=== PATIENT | male | born 1955 | race Caucasian/White ===

== ENCOUNTER 2022-07-11 10:38 | Inpatient (IN) | payer BC, SELFPAY ==
--- NOTE | ~2022-07-11 | CT_ITS ---
EXAMINATION: CT ABDOMEN AND PELVIS WITH CONTRAST CLINICAL INFORMATION: Abdominal discomfort. Nausea vomiting and diarrhea. Elevated lipase. COMPARISON: None available. TECHNIQUE: Multidetector volumetric images were obtained from the superior aspect of the liver through the pubic symphysis following administration 85 mL of Omnipaque 350 intravenous contrast. Sagittal and coronal reformatted images were obtained on the technologist's workstation. Oral contrast: Yes This CT examination was performed using dose optimization techniques as appropriate, variously including the following: *Automated exposure control *Adjustment of mA and/or kV according to patient size (this includes techniques or standardized protocols for targeted exams where dose is matched to indication/reason for exam; i.e. extremities or head) *Use of iterative reconstruction technique DLP: 642 mGy-cm FINDINGS: LUNG BASES: The visualized lung bases are unremarkable. LIVER, GALLBLADDER, AND BILIARY TREE: The liver is normal in size, shape, and attenuation. No focal hepatic lesion or biliary ductal dilatation is present. The gallbladder is unremarkable with no evidence of radiopaque gallstones, gallbladder wall thickening, or obvious pericholecystic inflammatory changes. PANCREAS: Unremarkable. SPLEEN: Unremarkable. ADRENAL GLANDS: Unremarkable. KIDNEYS AND URETERS: The kidneys are normal in size, shape, and attenuation. No hydronephrosis, hydroureter, or calculi seen. No perinephric stranding. Small left renal cyst. No imaging follow-up recommended. BLADDER: Unremarkable. GASTROINTESTINAL TRACT: Diverticulosis of the colon. Wall thickening of the sigmoid colon questionable for mild diverticulitis of the sigmoid colon. No evidence of obstruction, perforation or abscess. Small and large bowel is otherwise normal. The appendix is normal. ABDOMINAL WALL: No significant hernia is appreciated. LYMPH NODES: Normal. VASCULAR: Unremarkable. PELVIC VISCERA: Unremarkable. OSSEOUS STRUCTURES: Degenerative changes of the spine and hip joints CT/CT abdomen pelvis w IV con IMPRESSION: Normal pancreas. Diverticulosis of the colon. Wall thickening of the sigmoid colon questionable for mild sigmoid diverticulitis. Fleischner guidelines were followed.
--- NOTE | ~2022-07-11 | XR_ITS ---
EXAMINATION: XR CHEST CLINICAL INFORMATION: Rapid A. fib COMPARISON: None available. TECHNIQUE: Frontal view of the chest was obtained. FINDINGS: The cardiac and mediastinal contours are normal. There is minimal subsegmental atelectasis at the left lung base. The lungs are otherwise clear. No pleural effusion or pneumothorax. There are degenerative changes of the spine. XR/XR chest 1V IMPRESSION: No evidence for acute disease in the chest.
--- NOTE | 2022-07-11 07:21 | ECG_ITS ---
Test Reason : RECHECK Blood Pressure : / mmHG Vent. Rate : 061 BPM Atrial Rate : 061 BPM P-R Int : 184 ms QRS Dur : 152 ms QT Int : 444 ms P-R-T Axes : 031 -61 012 degrees QTc Int : 446 ms Sinus rhythm with occasional Premature ventricular complexes Right bundle branch block Left anterior fascicular block Bifascicular block Abnormal ECG When compared with ECG of 11-JUL-2022 19:05, Sinus rhythm has replaced atrial flutter Vent. rate has decreased BY 91 BPM Nonspecific T wave abnormality no longer evident in Anterior leads Referred By: Enio Villalobos Electronically Signed By:Jake Brown
[2022-07-11 11:15] VITALS: BP 143/83; PULSE 63; RESP 18; TEMP 36.9; O2SAT 96; BMI 31.3
--- NOTE | 2022-07-11 11:16 | ED.NAVMDI ---
HPI - Nausea/Vomiting/Diarrhea General Chief complaint: Nausea/Vomiting/Diarrhea <RENATO Walton Last Filed: 07/11/22 11:20> Stated complaint: dehydration <RENATO Walton Last Filed: 07/11/22 11:20> Time Seen by Provider: 07/11/22 11:16 <RENATO Walton Last Filed: 07/11/22 11:20> Source: patient <RENATO Negrete Last Filed: 07/11/22 20:20> Mode of arrival: ambulatory <RENATO Negrete Last Filed: 07/11/22 20:20> Limitations: no limitations <RENATO Negrete Last Filed: 07/11/22 20:20> History of Present Illness HPI Narrative: This is a 66-year-old male history of COPD, A.fib, Sarcoidosis presenting to the emergency department with fatigue, malaise, nausea, vomiting, diarrhea, chest pressure x3 days progressively worsening. Patient tells me it chest pressure is substernal in nature, feels like a burning GERD like sensation at times he feels it in his back. [place] pain. Pain is worse with exertion better at rest and at times accompanied with shortness of breath. Reports poor p.o. intake and everything he eats he wither vomits (bile) or has an episode of diarrhea. Reports generalized weakness and brown flecks in vomit. Patient denies alcohol use or history of diabetes or elevated blood sugars. Denies fevers, chills,, nausea, vomiting, headache, vision changes, dizziness, sore throat, cough, blood in stool or vomit. <RENATO Negrete Last Filed: 07/11/22 20:20> Related Data Allergies/Adverse reactions: Allergies Allergy/AdvReac Type Severity Reaction Status Date / Time No Known Allergies Allergy Verified 07/11/22 11:19 <RENATO Walton Last Filed: 07/11/22 11:20> Review of Systems Review of Systems: Constitutional : No Weight loss, No Fever, + Chills, No Fatigue, + Malaise ENT/Mouth : No sore throat, + sputum production Eyes: No Eye Pain, No Swelling, No Redness Cardiovascular : No Chest Pain, No SOB, No Dyspnea on Exertion, No Orthopnea, No Edema, No Palpitations Respiratory : No Cough, No Sputum, No Wheezing Gastrointestinal : + Nausea, + Vomiting, + Diarrhea, No Constipation, No abdominal Pain, No Hematochezia, No Melena Genitourinary : No Dysuria, No Urinary Frequency, No Hematuria, Musculoskeletal : No joint pain, No Myalgias, No Joint Swelling Skin : No Skin Lesions, No rash Neuro : No Weakness, No Numbness, No Dizziness, No Headache Psych : No Anxiety/Panic, No Depression All other systems reviewed and are negative <RENATO Negrete - Last Filed: 07/11/22 20:20> Yes all other systems are reviewed and are negative <RENATO Negrete - Last Filed: 07/11/22 20:20> Constitutional: Constitutional: Reports as per HPI <RENATO Negrete - Last Filed: 07/11/22 20:20> [facility] Past Medical History Attestation statement: The following information was validated with the patient. <RENATO Negrete - Last Filed: 07/11/22 20:20> Source: old records reviewed and nursing notes reviewed <RENATO Negrete - Last Filed: 07/11/22 20:20> Social History Social History: Social History Alcohol intake: never Smoked in Last 30 Days: No Use of substances other than those prescribed or required for medical reasons: Yes Substance Use Type: Marijuana Advance Directives: No Advance Directives Information Provided: No <RENATO Walton - Last Filed: 07/11/22 11:20> Physical Exam Vital Signs: Vital Signs: Last Vital Signs Temp 99.8 F 07/11/22 19:20 Pulse 134 H 07/11/22 20:00 Resp 20 07/11/22 20:00 BP 139/94 H 07/11/22 20:00 Pulse Ox 96 07/11/22 11:15 O2 Del Method Room Air 07/11/22 11:15 BMI result Body Mass Index 31.3 <RENATO Walton - Last Filed: 07/11/22 11:20> Vital Signs: Last Vital Signs Temp 99.8 F 07/11/22 19:20 Pulse 134 H 07/11/22 20:00 Resp 20 07/11/22 20:00 BP 139/94 H 07/11/22 20:00 Pulse Ox 96 07/11/22 11:15 O2 Del Method Room Air 07/11/22 11:15 BMI result Body Mass Index 31.3 vss <RENATO Negrete - Last Filed: 07/11/22 20:20> Appearance: Alert.? Oriented X3.? No acute distress.? Head: Normocephalic, atraumatic, no step-offs or deformities Eyes: Pupils equal, round and reactive to light.? CVS: Normal heart rate and rhythm.? Pulses normal.? Respiratory: No respiratory distress.? Breath sounds normal.? Abdomen: Soft and diffuse tenderness normal BS throughout .? Skin: Skin warm and dry.? Normal skin color.? Normal skin turgor.? Extremities: No lower extremity edema.? No calf ttp. 5/5 strength to bilateral upper and lower extremities Neuro: Oriented X 3.? No motor deficit.? No sensory deficit. CN 2-12 intact <RENATO Negrete - Last Filed: 07/11/22 20:20> Course Course Course Narrative: RME: 66yo M w/PMHx COPD, A.fib, Sarcoidosis, c/o nausea, vomiting, & loose diarrhea x3 days s/p eating [place] food. Reports episode of bloody tinged/specked emesis this AM. Hasn't been able to tolerate PO. Denies abdominal pain, dysuria Labs, UA, COVID, IVF, Zofran ordered. (Troponin requested by ) Full HPI, ROS and PE to be performed by primary ED provider. <RENATO Walton - Last Filed: 07/11/22 11:20> Reevaluation(s) Reevaluation #1: CBC with slight leukocytosis 15.1 likely reactive secondary to nausea and vomiting. Chemistry with elevated BUN 27 likely secondary to poor p.o. intake/dehydration, will hydrate with IV fluids. No acute electrolyte abnormalities requiring intervention. Troponin 13.4, EKG nonischemic unlikely ACS. Lipase is noted to be elevated 113, will hydrate with IV fluids. <RENATO Negrete - Last Filed: 07/11/22 20:20> Time: 16:50 <RENATO Negrete - Last Filed: 07/11/22 20:20> Reevaluation #2: Went to evaluate patient and he tells me that he is having some boring chest pain at this time he was given Toradol which did not seem to help much. Troponin is meeting delta criteria however EKG nonischemic concerns for anginal equivalent chest pain versus demand ischemia. <RENATO Negrete - Last Filed: 07/11/22 20:20> Time: 18:14 <RENATO Negrete - Last Filed: 07/11/22 20:20> Reevaluation #3: Patient now in AFib with RVR gave 10 mg of IV Cardizem without relief, will give another 20 mg of IV Cardizem. Patient likely in AFib with RVR secondary to dehydration, and is likely contributing to his increased troponins, increased troponin was likely secondary to demand ischemia. Patient to be admitted to the hospital <RENATO Negrete - Last Filed: 07/11/22 20:20> Time: 19:37 <RENATO Negrete - Last Filed: 07/11/22 20:20> Additional Reevaluation(s): CT of the abdomen and pelvis showing acute diverticulitis, given Zosyn. Patient to be admitted to the hospital. At time of hospital admission still in AFib with a rate of 140, on Cardizem drip per hospitalist. <RENATO Negrete - Last Filed: 07/11/22 20:20> Medications Administered Discontinued Medications Generic Name Dose Route Start Last Admin Trade Name Freq PRN Reason Stop Dose Admin Diltiazem HCl 10 mg 07/11/22 19:11 07/11/22 19:21 Diltiazem Hcl 50 Mg/10 Ml Vial IVPUSH 07/11/22 19:12 10 mg STAT STA Administration Diltiazem HCl 20 mg 07/11/22 19:34 07/11/22 19:43 Diltiazem Hcl 50 Mg/10 Ml Vial IVPUSH 07/11/22 19:35 20 mg STAT STA Administration Sodium Chloride 1,000 mls @ 999 mls/hr 07/11/22 11:30 07/11/22 18:49 Ns IV 07/11/22 12:30 Infused .Q1H1M EARL Infusion Sodium Chloride 1,000 mls @ 999 mls/hr 07/11/22 18:15 07/11/22 18:49 Ns IV 07/11/22 19:15 999 mls/hr .Q1H1M EARL Administration Piperacillin Sod/Tazobactam 50 mls @ 100 mls/hr 07/11/22 19:12 07/11/22 19:47 Sod 3.375 gm/ Sodium Chloride IV 07/11/22 19:41 100 mls/hr ONCE ONE Administration Iohexol 100 ml 07/11/22 17:51 07/11/22 17:51 Iohexol 350 Mg/Ml 100 Ml Infus..Btl IV 07/11/22 17:52 85 ml ONCE ONE Administration Ketorolac Tromethamine 30 mg 07/11/22 17:05 07/11/22 17:11 Ketorolac Tromethamine 15 Mg/Ml Vial IVPUSH 07/11/22 17:06 30 mg ONCE ONE Administration Ondansetron HCl 4 mg 07/11/22 11:19 07/11/22 17:02 Ondansetron Hcl 4 Mg/2 Ml Vial IVPUSH 07/11/22 11:20 4 mg ONCE ONE Administration <RENATO Walton - Last Filed: 07/11/22 11:20> Medications Administered Discontinued Medications Generic Name Dose Route Start Last Admin Trade Name Freq PRN Reason Stop Dose Admin Diltiazem HCl 10 mg 07/11/22 19:11 07/11/22 19:21 Diltiazem Hcl 50 Mg/10 Ml Vial IVPUSH 07/11/22 19:12 10 mg STAT STA Administration Diltiazem HCl 20 mg 07/11/22 19:34 07/11/22 19:43 Diltiazem Hcl 50 Mg/10 Ml Vial IVPUSH 07/11/22 19:35 20 mg STAT STA Administration Sodium Chloride 1,000 mls @ 999 mls/hr 07/11/22 11:30 07/11/22 18:49 Ns IV 07/11/22 12:30 Infused .Q1H1M EARL Infusion Sodium Chloride 1,000 mls @ 999 mls/hr 07/11/22 18:15 07/11/22 18:49 Ns IV 07/11/22 19:15 999 mls/hr .Q1H1M EARL Administration Piperacillin Sod/Tazobactam 50 mls @ 100 mls/hr 07/11/22 19:12 07/11/22 19:47 Sod 3.375 gm/ Sodium Chloride IV 07/11/22 19:41 100 mls/hr ONCE ONE Administration Iohexol 100 ml 07/11/22 17:51 07/11/22 17:51 Iohexol 350 Mg/Ml 100 Ml Infus..Btl IV 07/11/22 17:52 85 ml ONCE ONE Administration Ketorolac Tromethamine 30 mg 07/11/22 17:05 07/11/22 17:11 Ketorolac Tromethamine 15 Mg/Ml Vial IVPUSH 07/11/22 17:06 30 mg ONCE ONE Administration Ondansetron HCl 4 mg 07/11/22 11:19 07/11/22 17:02 Ondansetron Hcl 4 Mg/2 Ml Vial IVPUSH 07/11/22 11:20 4 mg ONCE ONE Administration <RENATO Negrete - Last Filed: 07/11/22 20:20> Medical Decision Making Medical Decision Making [facility] Narrative: [id number] This is a 66-year-old male presenting for evaluation of nausea, vomiting, diarrhea, chest pressure x3 days worsening. Physical exam w/ diffuse abd discomfort w/ present bowel sounds Concern for possible electrolyte abnormalities versus dehydration. Will rule out intra-abdominal etiologies such as obstruction although unlikely. I do not suspect acute abdomen, appendicitis, cholecystitis, diverticulitis. Other differentials include viral illness. I do not suspect dissection, PE, mi. Concerns for possible unstable angina. Plan labs, imaging, urine. Will give fluids, Zofran. <RENATO Negrete Last Filed: 07/11/22 20:20> Differential Diagnosis Differential Diagnoses: The differential diagnosis associated with the presentation includes <RENATO Negrete Last Filed: 07/11/22 20:20> Concern for possible electrolyte abnormalities versus dehydration. Will rule out intra-abdominal etiologies such as obstruction although unlikely. I do not suspect acute abdomen, appendicitis, cholecystitis, diverticulitis. Other differentials include viral illness. I do not suspect dissection, PE, mi. Concerns for possible unstable angina. <RENATO Negrete - Last Filed: 07/11/22 20:20> Admission/Observation Consideration of admission/observation: Escalation of care including admission/observation considered <RENATO Negrete - Last Filed: 07/11/22 20:20> Unlikely <RENATO Negrete - Last Filed: 07/11/22 20:20> Consult Healthcare Provider Management of the patient was discussed with: [employer] <RENATO Negrete - Last Filed: 07/11/22 20:20> Lab Data MDM Lab Attestation statement: I reviewed the patient's lab results. <RENATO Negrete - Last Filed: 07/11/22 20:20> Result Diagrams: 07/11/22 11:48 07/11/22 11:48 <RENATO Walotn - Last Filed: 07/11/22 11:20> Labs: Lab Results 07/11/22 07/11/22 07/11/22 Range/Units 11:48 11:48 11:48 WBC 15.1 H (4.8-10.8) X10*3/uL RBC 4.88 (4.60-5.80) X10*6/uL Hgb 15.2 (14.0-18.0) g/dl Hct 44.0 (42.0-52.0) % MCV 90.2 (80.0-98.0) fL MCH 31.1 (27.0-33.0) pg MCHC 34.5 (31.0-36.0) g/dl RDW 13.1 (11.0-16.0) % Plt Count 290 (160-400) X10*3/uL MPV 9.8 (9.4-12.4) fL Immature Gran % (Auto) 0.5 H (0.0-0.4) % Neut % (Auto) 77.6 H (45-73) % Lymph % (Auto) 12.9 L (20-40) % [place] % (Auto) 8.8 (2-11) % Eos % (Auto) 0.1 (0-4) % Baso % (Auto) 0.1 (0-2) % Lymph # (Auto) 1.9 (1.2-4.9) X10*3/uL [place] # (Auto) 1.3 H (0.1-1.2) X10*3/uL Eos # (Auto) 0.0 (0.0-0.4) X10*3/uL Baso # (Auto) 0.0 (0.0-0.2) X10*3/uL Abs Immat Gran (auto) 0.07 H (0.00-0.03) X10*3/uL Absolute Neuts (auto) 11.7 H (2.0-8.3) x10*3/uL Absolute Nucleated RBC 0.000 (0.0-0.012) X10*3/uL Nucleated RBC % (auto) 0.0 (0.0-0.2) /100WBC Sodium 141 (135-145) mmol/L Potassium 4.1 (3.3-5.1) mmol/L Chloride 106 (96-108) mmol/L Carbon Dioxide 25 (22-29) mmol/L Anion Gap 14 (12-20) BUN 27 H (9-16) mg/dL Creatinine 1.24 (0.5-1.4) mg/dL Estim Creat Clear Calc 70.9 Estimated GFR 59 Random Glucose 109 (60-115) mg/dL Lactic Acid (0.5-2.0) mmol/L Calcium 9.6 (8.4-10.2) mg/dL Magnesium 2.0 (1.6-2.6) mg/dL Total Bilirubin 1.0 (0.0-1.0) mg/dL Direct Bilirubin 0.3 (0.0-0.5) mg/dL AST 26 (5-37) U/L ALT 27 (0-40) U/L Alkaline Phosphatase 66 (39-117) U/L Troponin I High Sens (<3.5-35.0) ng/L B-Natriuretic Peptide (<100) pg/mL Total Protein 7.0 (6.5-8.0) g/dL Albumin 4.4 (3.5-5.0) g/dL Triglycerides 75 mg/dL Lipase 113 H (8-78) U/L Urine Color Urine Appearance Urine pH (5.0-9.0) Ur Specific [place] (1.005-1.025) Urine Protein (Neg-Trace) mg/dL Urine Glucose (UA) (Negative) mg/dL Urine Ketones (Negative) mg/dL Urine Blood (Negative) Urine Nitrite (Negative) Ur Leukocyte Esterase (Negative) Urine RBC (0-2) /HPF Urine WBC (0-5) /HPF Ur Squamous Epith Cells (0-2) /HPF Urine Bacteria (None Seen) Hyaline Casts (0-2) /LPF COVID-19 (COMPA) Negative (Negative) COVID-19 Clin Com See Note 07/11/22 07/11/22 07/11/22 Range/Units 11:48 17:01 19:00 WBC (4.8-10.8) X10*3/uL RBC (4.60-5.80) X10*6/uL Hgb (14.0-18.0) g/dl Hct (42.0-52.0) % MCV (80.0-98.0) fL MCH (27.0-33.0) pg MCHC (31.0-36.0) g/dl RDW (11.0-16.0) % Plt Count (160-400) X10*3/uL MPV (9.4-12.4) fL Immature Gran % (Auto) (0.0-0.4) % Neut % (Auto) (45-73) % Lymph % (Auto) (20-40) % [place] % (Auto) (2-11) % Eos % (Auto) (0-4) % Baso % (Auto) (0-2) % Lymph # (Auto) (1.2-4.9) X10*3/uL [place] # (Auto) (0.1-1.2) X10*3/uL Eos # (Auto) (0.0-0.4) X10*3/uL Baso # (Auto) (0.0-0.2) X10*3/uL Abs Immat Gran (auto) (0.00-0.03) X10*3/uL Absolute Neuts (auto) (2.0-8.3) x10*3/uL Absolute Nucleated RBC (0.0-0.012) X10*3/uL Nucleated RBC % (auto) (0.0-0.2) /100WBC Sodium (135-145) mmol/L Potassium (3.3-5.1) mmol/L Chloride (96-108) mmol/L Carbon Dioxide (22-29) mmol/L Anion Gap (12-20) BUN (9-16) mg/dL Creatinine (0.5-1.4) mg/dL Estim Creat Clear Calc Estimated GFR Random Glucose (60-115) mg/dL Lactic Acid (0.5-2.0) mmol/L Calcium (8.4-10.2) mg/dL Magnesium (1.6-2.6) mg/dL Total Bilirubin (0.0-1.0) mg/dL Direct Bilirubin (0.0-0.5) mg/dL AST (5-37) U/L ALT (0-40) U/L Alkaline Phosphatase (39-117) U/L Troponin I High Sens 13.4 21.2 D (<3.5-35.0) ng/L B-Natriuretic Peptide (<100) pg/mL Total Protein (6.5-8.0) g/dL Albumin (3.5-5.0) g/dL Triglycerides mg/dL Lipase (8-78) U/L Urine Color Yellow Urine Appearance Clear Urine pH 6.5 (5.0-9.0) Ur Specific [place] >= 1.030 H (1.005-1.025) Urine Protein 300 (3+) H (Neg-Trace) mg/dL Urine Glucose (UA) Negative (Negative) mg/dL Urine Ketones 40 (Negative) mg/dL Urine Blood Trace H (Negative) Urine Nitrite Negative (Negative) Ur Leukocyte Esterase Negative (Negative) Urine RBC 0-2 (0-2) /HPF Urine WBC 0-5 (0-5) /HPF Ur Squamous Epith Cells 3-5 (0-2) /HPF Urine Bacteria None Seen (None Seen) Hyaline Casts 0-2 (0-2) /LPF COVID-19 (COMPA) (Negative) COVID-19 Clin Com 07/11/22 07/11/22 Range/Units 19:46 19:46 WBC (4.8-10.8) X10*3/uL RBC (4.60-5.80) X10*6/uL Hgb (14.0-18.0) g/dl Hct (42.0-52.0) % MCV (80.0-98.0) fL MCH (27.0-33.0) pg MCHC (31.0-36.0) g/dl RDW (11.0-16.0) % Plt Count (160-400) X10*3/uL MPV (9.4-12.4) fL Immature Gran % (Auto) (0.0-0.4) % Neut % (Auto) (45-73) % Lymph % (Auto) (20-40) % [place] % (Auto) (2-11) % Eos % (Auto) (0-4) % Baso % (Auto) (0-2) % Lymph # (Auto) (1.2-4.9) X10*3/uL [place] # (Auto) (0.1-1.2) X10*3/uL Eos # (Auto) (0.0-0.4) X10*3/uL Baso # (Auto) (0.0-0.2) X10*3/uL Abs Immat Gran (auto) (0.00-0.03) X10*3/uL Absolute Neuts (auto) (2.0-8.3) x10*3/uL Absolute Nucleated RBC (0.0-0.012) X10*3/uL Nucleated RBC % (auto) (0.0-0.2) /100WBC Sodium (135-145) mmol/L Potassium (3.3-5.1) mmol/L Chloride (96-108) mmol/L Carbon Dioxide (22-29) mmol/L Anion Gap (12-20) BUN (9-16) mg/dL Creatinine (0.5-1.4) mg/dL Estim Creat Clear Calc Estimated GFR Random Glucose (60-115) mg/dL Lactic Acid 1.3 (0.5-2.0) mmol/L Calcium (8.4-10.2) mg/dL Magnesium (1.6-2.6) mg/dL Total Bilirubin (0.0-1.0) mg/dL Direct Bilirubin (0.0-0.5) mg/dL AST (5-37) U/L ALT (0-40) U/L Alkaline Phosphatase (39-117) U/L Troponin I High Sens (<3.5-35.0) ng/L B-Natriuretic Peptide 369 H (<100) pg/mL Total Protein (6.5-8.0) g/dL Albumin (3.5-5.0) g/dL Triglycerides mg/dL Lipase (8-78) U/L Urine Color Urine Appearance Urine pH (5.0-9.0) Ur Specific [place] (1.005-1.025) Urine Protein (Neg-Trace) mg/dL Urine Glucose (UA) (Negative) mg/dL Urine Ketones (Negative) mg/dL Urine Blood (Negative) Urine Nitrite (Negative) Ur Leukocyte Esterase (Negative) Urine RBC (0-2) /HPF Urine WBC (0-5) /HPF Ur Squamous Epith Cells (0-2) /HPF Urine Bacteria (None Seen) Hyaline Casts (0-2) /LPF COVID-19 (COMPA) (Negative) COVID-19 Clin Com <RENATO Walton - Last Filed: 07/11/22 11:20> Lab Results 07/11/22 07/11/22 07/11/22 Range/Units 11:48 11:48 11:48 WBC 15.1 H (4.8-10.8) X10*3/uL RBC 4.88 (4.60-5.80) X10*6/uL Hgb 15.2 (14.0-18.0) g/dl Hct 44.0 (42.0-52.0) % MCV 90.2 (80.0-98.0) fL MCH 31.1 (27.0-33.0) pg MCHC 34.5 (31.0-36.0) g/dl RDW 13.1 (11.0-16.0) % Plt Count 290 (160-400) X10*3/uL MPV 9.8 (9.4-12.4) fL Immature Gran % (Auto) 0.5 H (0.0-0.4) % Neut % (Auto) 77.6 H (45-73) % Lymph % (Auto) 12.9 L (20-40) % [place] % (Auto) 8.8 (2-11) % Eos % (Auto) 0.1 (0-4) % Baso % (Auto) 0.1 (0-2) % Lymph # (Auto) 1.9 (1.2-4.9) X10*3/uL [place] # (Auto) 1.3 H (0.1-1.2) X10*3/uL Eos # (Auto) 0.0 (0.0-0.4) X10*3/uL Baso # (Auto) 0.0 (0.0-0.2) X10*3/uL Abs Immat Gran (auto) 0.07 H (0.00-0.03) X10*3/uL Absolute Neuts (auto) 11.7 H (2.0-8.3) x10*3/uL Absolute Nucleated RBC 0.000 (0.0-0.012) X10*3/uL Nucleated RBC % (auto) 0.0 (0.0-0.2) /100WBC Sodium 141 (135-145) mmol/L Potassium 4.1 (3.3-5.1) mmol/L Chloride 106 (96-108) mmol/L Carbon Dioxide 25 (22-29) mmol/L Anion Gap 14 (12-20) BUN 27 H (9-16) mg/dL Creatinine 1.24 (0.5-1.4) mg/dL Estim Creat Clear Calc 70.9 Estimated GFR 59 Random Glucose 109 (60-115) mg/dL Lactic Acid (0.5-2.0) mmol/L Calcium 9.6 (8.4-10.2) mg/dL Magnesium 2.0 (1.6-2.6) mg/dL Total Bilirubin 1.0 (0.0-1.0) mg/dL Direct Bilirubin 0.3 (0.0-0.5) mg/dL AST 26 (5-37) U/L ALT 27 (0-40) U/L Alkaline Phosphatase 66 (39-117) U/L Troponin I High Sens (<3.5-35.0) ng/L B-Natriuretic Peptide (<100) pg/mL Total Protein 7.0 (6.5-8.0) g/dL Albumin 4.4 (3.5-5.0) g/dL Triglycerides 75 mg/dL Lipase 113 H (8-78) U/L Urine Color Urine Appearance Urine pH (5.0-9.0) Ur Specific [place] (1.005-1.025) Urine Protein (Neg-Trace) mg/dL Urine Glucose (UA) (Negative) mg/dL Urine Ketones (Negative) mg/dL Urine Blood (Negative) Urine Nitrite (Negative) Ur Leukocyte Esterase (Negative) Urine RBC (0-2) /HPF Urine WBC (0-5) /HPF Ur Squamous Epith Cells (0-2) /HPF Urine Bacteria (None Seen) Hyaline Casts (0-2) /LPF COVID-19 (COMPA) Negative (Negative) COVID-19 Clin Com See Note 07/11/22 07/11/22 07/11/22 Range/Units 11:48 17:01 19:00 WBC (4.8-10.8) X10*3/uL RBC (4.60-5.80) X10*6/uL Hgb (14.0-18.0) g/dl Hct (42.0-52.0) % MCV (80.0-98.0) fL MCH (27.0-33.0) pg MCHC (31.0-36.0) g/dl RDW (11.0-16.0) % Plt Count (160-400) X10*3/uL MPV (9.4-12.4) fL Immature Gran % (Auto) (0.0-0.4) % Neut % (Auto) (45-73) % Lymph % (Auto) (20-40) % [place] % (Auto) (2-11) % Eos % (Auto) (0-4) % Baso % (Auto) (0-2) % Lymph # (Auto) (1.2-4.9) X10*3/uL [place] # (Auto) (0.1-1.2) X10*3/uL Eos # (Auto) (0.0-0.4) X10*3/uL Baso # (Auto) (0.0-0.2) X10*3/uL Abs Immat Gran (auto) (0.00-0.03) X10*3/uL Absolute Neuts (auto) (2.0-8.3) x10*3/uL Absolute Nucleated RBC (0.0-0.012) X10*3/uL Nucleated RBC % (auto) (0.0-0.2) /100WBC Sodium (135-145) mmol/L Potassium (3.3-5.1) mmol/L Chloride (96-108) mmol/L Carbon Dioxide (22-29) mmol/L Anion Gap (12-20) BUN (9-16) mg/dL Creatinine (0.5-1.4) mg/dL Estim Creat Clear Calc Estimated GFR Random Glucose (60-115) mg/dL Lactic Acid (0.5-2.0) mmol/L Calcium (8.4-10.2) mg/dL Magnesium (1.6-2.6) mg/dL Total Bilirubin (0.0-1.0) mg/dL Direct Bilirubin (0.0-0.5) mg/dL AST (5-37) U/L ALT (0-40) U/L Alkaline Phosphatase (39-117) U/L Troponin I High Sens 13.4 21.2 D (<3.5-35.0) ng/L B-Natriuretic Peptide (<100) pg/mL Total Protein (6.5-8.0) g/dL Albumin (3.5-5.0) g/dL Triglycerides mg/dL Lipase (8-78) U/L Urine Color Yellow Urine Appearance Clear Urine pH 6.5 (5.0-9.0) Ur Specific [place] >= 1.030 H (1.005-1.025) Urine Protein 300 (3+) H (Neg-Trace) mg/dL Urine Glucose (UA) Negative (Negative) mg/dL Urine Ketones 40 (Negative) mg/dL Urine Blood Trace H (Negative) Urine Nitrite Negative (Negative) Ur Leukocyte Esterase Negative (Negative) Urine RBC 0-2 (0-2) /HPF Urine WBC 0-5 (0-5) /HPF Ur Squamous Epith Cells 3-5 (0-2) /HPF Urine Bacteria None Seen (None Seen) Hyaline Casts 0-2 (0-2) /LPF COVID-19 (COMPA) (Negative) COVID-19 Clin Com 07/11/22 07/11/22 Range/Units 19:46 19:46 WBC (4.8-10.8) X10*3/uL RBC (4.60-5.80) X10*6/uL Hgb (14.0-18.0) g/dl Hct (42.0-52.0) % MCV (80.0-98.0) fL MCH (27.0-33.0) pg MCHC (31.0-36.0) g/dl RDW (11.0-16.0) % Plt Count (160-400) X10*3/uL MPV (9.4-12.4) fL Immature Gran % (Auto) (0.0-0.4) % Neut % (Auto) (45-73) % Lymph % (Auto) (20-40) % [place] % (Auto) (2-11) % Eos % (Auto) (0-4) % Baso % (Auto) (0-2) % Lymph # (Auto) (1.2-4.9) X10*3/uL [place] # (Auto) (0.1-1.2) X10*3/uL Eos # (Auto) (0.0-0.4) X10*3/uL Baso # (Auto) (0.0-0.2) X10*3/uL Abs Immat Gran (auto) (0.00-0.03) X10*3/uL Absolute Neuts (auto) (2.0-8.3) x10*3/uL Absolute Nucleated RBC (0.0-0.012) X10*3/uL Nucleated RBC % (auto) (0.0-0.2) /100WBC Sodium (135-145) mmol/L Potassium (3.3-5.1) mmol/L Chloride (96-108) mmol/L Carbon Dioxide (22-29) mmol/L Anion Gap (12-20) BUN (9-16) mg/dL Creatinine (0.5-1.4) mg/dL Estim Creat Clear Calc Estimated GFR Random Glucose (60-115) mg/dL Lactic Acid 1.3 (0.5-2.0) mmol/L Calcium (8.4-10.2) mg/dL Magnesium (1.6-2.6) mg/dL Total Bilirubin (0.0-1.0) mg/dL Direct Bilirubin (0.0-0.5) mg/dL AST (5-37) U/L ALT (0-40) U/L Alkaline Phosphatase (39-117) U/L Troponin I High Sens (<3.5-35.0) ng/L B-Natriuretic Peptide 369 H (<100) pg/mL Total Protein (6.5-8.0) g/dL Albumin (3.5-5.0) g/dL Triglycerides mg/dL Lipase (8-78) U/L Urine Color Urine Appearance Urine pH (5.0-9.0) Ur Specific [place] (1.005-1.025) Urine Protein (Neg-Trace) mg/dL Urine Glucose (UA) (Negative) mg/dL Urine Ketones (Negative) mg/dL Urine Blood (Negative) Urine Nitrite (Negative) Ur Leukocyte Esterase (Negative) Urine RBC (0-2) /HPF Urine WBC (0-5) /HPF Ur Squamous Epith Cells (0-2) /HPF Urine Bacteria (None Seen) Hyaline Casts (0-2) /LPF COVID-19 (COMPA) (Negative) COVID-19 Clin Com <RENATO Negrete - Last Filed: 07/11/22 20:20> Independent Interpretation I performed an independent interpretation of an: EKG (Ventricular rate of 152, UT varies, QRS normal, QT/QTC normal. EKG with AFib with rapid ventricular response. No ST elevations or inversions concerning for ischemia) and CT Scan (CT/CT abdomen pelvis w IV con IMPRESSION: Normal pancreas. Diverticulosis of the colon. Wall thickening of the sigmoid colon questionable for mild sigmoid diverticulitis. Fleischner guidelines were followed.) <RENATO Negrete - Last Filed: 07/11/22 20:20> Radiology Impression Discussion of test interpretation with radiology: I have reviewed the radiologist's reading. <RENATO Negrete Last Filed: 07/11/22 20:20> Core Measures AMI core measures followed: Yes <RENATO Negrete Last Filed: 07/11/22 20:20> Measure exclusions: not indicated <RENATO Negrete - Last Filed: 07/11/22 20:20> Critical Care Time Critical Care Time Critical Care Time: Yes <RENATO Negrete - Last Filed: 07/11/22 20:20> Total Critical Care Time: 45 <RENATO Negrete - Last Filed: 07/11/22 20:20> Attestation: I attest to this time spent taking care of the patient, obtaining history, physical, reviewing labs, imaging, speaking to my attending, speaking to specialist. <RENATO Negrete - Last Filed: 07/11/22 20:20> Discharge Plan Discharge Clinical Impression: Diverticulitis, Nausea & vomiting, Dehydration, Diarrhea, Atrial fibrillation with rapid ventricular response <RENATO Walton - Last Filed: 07/11/22 11:20>
[2022-07-11 11:57] LABS: MANUAL DIFF FLAG NO
[2022-07-11 12:04] LABS: Basophils Percent Auto 0.1 % (0-2); Eosinophils Percent Auto 0.1 % (0-4); Hemoglobin 15.2 g/dl (14.0-18.0); Imm Gran Abs Auto 0.07 X10*3/uL (0.00-0.03); Imm Gran Pct Auto 0.5 % (0.0-0.4); Lymphocytes Absolute Auto 1.9 X10*3/uL (1.2-4.9); Lymphocytes Percent Auto 12.9 % (20-40); Mean Corpuscular HGB Conc 34.5 g/dl (31.0-36.0); Mean Corpuscular Hemoglobin 31.1 pg (27.0-33.0); Mean Corpuscular Volume 90.2 fL (80.0-98.0); Mean Platelet Volume 9.8 fL (9.4-12.4); Monocytes Absolute Auto 1.3 X10*3/uL (0.1-1.2); Monocytes Percent Auto 8.8 % (2-11); Neutrophils Absolute Auto 11.7 x10*3/uL (2.0-8.3); Neutrophils Percent Auto 77.6 % (45-73); Platelet Count 290 X10*3/uL (160-400); Red Blood Count 4.88 X10*6/uL (4.60-5.80); Red Cell Distribution Width 13.1 % (11.0-16.0); White Blood Count 15.1 X10*3/uL (4.8-10.8)
[2022-07-11 12:13] LABS: Alanine Aminotransferase 27 U/L (0-40); Albumin Level 4.4 g/dL (3.5-5.0); Alkaline Phosphatase 66 U/L (39-117); Anion Gap 14 (12-20); Aspartate Amino Transferase 26 U/L (5-37); Bilirubin Direct 0.3 mg/dL (0.0-0.5); Blood Urea Nitrogen 27 mg/dL (9-16); Calcium 9.6 mg/dL (8.4-10.2); Carbon Dioxide 25 mmol/L (22-29); Chloride 106 mmol/L (96-108); Creatinine Clr Calc Pharmacy 70.9; Estimated Glomerular Filt Rate 59; Glucose Random 109 mg/dL (60-115); Lipase 113 U/L (8-78); Potassium 4.1 mmol/L (3.3-5.1); Sodium 141 mmol/L (135-145)
[2022-07-11 12:21] LABS: COVID-19 Test Negative (Negative); IDNOW Serial# 08D9AD1C; Troponin-I High Sensitivity 13.4 ng/L (<3.5-35.0)
[2022-07-11] MEDS: ondansetron HCL 4 MG/2 ML VIAL IVPUSH (17:02)
[2022-07-11] MEDS: 0.9 % Sodium Chloride 1,000 ML 999 ML IV ×2 (17:03→18:49)
[2022-07-11] MEDS: Ketorolac Tromethamine 15 MG/ML VIAL 30 MG IVPUSH (17:11)
[2022-07-11 17:41] LABS: Troponin-I High Sensitivity 21.2 ng/L (<3.5-35.0)
[2022-07-11] MEDS: iohexoL 350 MG/ML 100 ML INFUS..BTL IV (17:51)
--- NOTE | 2022-07-11 18:15 | ECG_ITS ---
Test Reason : CHEST PAIN Blood Pressure : / mmHG Vent. Rate : 152 BPM Atrial Rate : 000 BPM P-R Int : 000 ms QRS Dur : 140 ms QT Int : 346 ms P-R-T Axes : 000 230 006 degrees QTc Int : 550 ms Atrial flutter with rapid ventricular response with premature ventricular or aberrantly conducted complexes Right bundle branch block Abnormal ECG No previous ECGs available Referred By: Enio Villalobos Electronically Signed By:Jake Brown
[2022-07-11 19:20] VITALS: BP 108/80; PULSE 152; RESP 18; TEMP 37.7
[2022-07-11 19:20] LABS: Appearance Urine Clear; Color Urine Yellow; Glucose Urine UA Negative (Negative); Leukocyte Esterase Urine Negative (Negative); Nitrite Urine Negative (Negative); PH 6.5 (5.0-9.0); Specific Gravity - Urine >= 1.030 (1.005-1.025); UMIC TRIGGER UACC YES; Urine Blood Trace (Negative); Urine Ketones 40 mg/dL (Negative); Urine Protein 300 (3+) mg/dL (Neg-Trace)
--- NOTE | 2022-07-11 19:20 | PC.NURSE ---
EKG obtained on patient, showing AFIB with RVR, provider aware and dilt ordered.
[2022-07-11] MEDS: dilTIAZem HCL 50 MG/10 ML VIAL 10 MG IVPUSH (19:21)
[2022-07-11 19:24] LABS: Triglycerides 75 mg/dL
[2022-07-11 19:25] LABS: Bacteria Urine None Seen (None Seen); Hyaline Casts Urine 0-2 /LPF (0-2); RBC Urine 0-2 /HPF (0-2); WBC Urine 0-5 /HPF (0-5)
[2022-07-11] MEDS: dilTIAZem HCL 50 MG/10 ML VIAL 20 MG IVPUSH (19:43)
[2022-07-11 19:45] VITALS: BP 111/74; PULSE 151; RESP 18
--- NOTE | 2022-07-11 19:45 | PC.NURSE ---
First dose of dilt did not help patient, second dose ordered and given.
[2022-07-11] MEDS: Piperacillin Sodium/Tazobactam 3.375 GM in 0.9 % Sodium Chloride 50 ML IV (19:47)
[2022-07-11 20:00] VITALS: BP 139/94; PULSE 134; RESP 20
--- NOTE | 2022-07-11 20:00 | MHC.EDTECH ---
THIS PCT ASSUMED CARE OF PT AT 1999 ,PT VITALS SIGN TAKEN
[2022-07-11 20:04] LABS: Lactic Acid 1.3 mmol/L (0.5-2.0)
--- NOTE | 2022-07-11 20:10 | PC.NURSE ---
Patient converted back to a sinus rhythm in the high 50's to low 60's. Patient states that he doesn't feel any different.
[2022-07-11 20:15] LABS: B Type Natriuretic Peptide 369 pg/mL (<100)
[2022-07-11 20:16] VITALS: BP 141/81; PULSE 55; RESP 16; TEMP 36.5; O2SAT 98
--- NOTE | 2022-07-11 20:25 | P.HPHOSP_ITS ---
History of Present Illness Date of Service: 07/11/22 Attending physician on admission: Debbi Dobsno Chief Complaint: n/v/d, po intolerance 66-year-old male with history of atrial fibrillation not on anticoagulation, sarcoidosis, and COPD earlier today with his , for evaluation of fatigue, malaise, nausea, vomiting, diarrhea, and chest tightness ongoing for 3 days but progressively worsening. On arrival, reports chest pain was radiating to the back but states this has resolved. There is occasionally shortness of breath and lightheadedness. He states symptoms started the morning after consuming [place] food. Since then, he has been vomiting bile with copious diarrhea and u nable to tolerate food and minimal fluid intake. He denies any hematemesis, hematochezia, melena. There is generalized abdominal discomfort but no focal pain. States no one at home has similar symptoms. Denies any fevers, chills. On arrival, vital stable though patient did develop significant tachycardia with heart rate 152, found to be in rapid AFib on EKG. He is afebrile, no hypotension. Has been given 20 mg IV push Cardizem followed by 10 mg IV push Cardizem. Heart rate throughout exam ranging 120-160, but NSR restored with HR 60 upon completion of exam without additional therapeutic intervention. There is leukocytosis of 15.1. Creatinine 1.24, BUN 27. Baseline renal function u nknown. Electrolyte levels normal. Magnesium level within normal limits, TSH pending. Initial troponin 13.4, repeat 21.2. BNP 369. CT abdomen/pelvis showing diverticulosis with wall thickening of the sigmoid colon questionable for mild sigmoid diverticulitis. EKG showing AFib with RVR and PVCs versus aberrant Ramona conducted complexes, rate 152, no ST/T-wave abnormality. Treated with IV zosyn and IVF in ED. Review of Systems Review of Systems: General: No fevers, malaise, unintentional weight loss HEENT: No blurred vision, diplopia. No sore throat, nasal congestion, rhinorrhea, sinus pain, ear pain Cardiovascular: +chest tightness. No palpitations, or leg edema Respiratory: No shortness of breath, wheezing, cough GI: +abd discomfort, n/v/d, PO intolerance. No constipation, melena, hemato chezia : No dysuria, hematuria, increased urinary frequency, decreased urinary output MSK: No myalgia, back pain Neuro: No headaches, weakness, paresthesias Skin: No rashes or lesions [facility] Medical History Atrial fibrillation COPD (chronic obstructive pulmonary disease) Sarcoidosis Social History Alcohol intake: never Smoked in Last 30 Days: No Use of substances other than those prescribed or required for medical reasons: Yes Substance Use Type: Marijuana Advance Directives: No Advance Directives Information Provided: No Meds Allergies Allergy/AdvReac Type Severity Reaction Status Date / Time No Known Allergies Allergy Verified 07/11/22 11:19 Active Medications: Current Medications Acetaminophen (Acetaminophen 325 Mg Tablet) 650 mg PO Q6H PRN PRN Reason: Pain, Mild (Pain Scale 1-3) Enoxaparin Sodium (Enoxaparin Sodium 40 Mg/0.4 Ml Syringe) 40 mg SUBCUT Q24H EARL Diltiazem HCl 125 mg/ Sodium (Chloride) 125 mls @ 0 mls/hr IVCONT .Q0M EARL; Protocol Piperacillin Sod/Tazobactam (Sod 3.375 gm/ Sodium Chloride) 50 mls @ 100 mls/hr IV Q6H EARL Ondansetron HCl (Ondansetron Hcl 4 Mg/2 Ml Vial) 4 mg IVPUSH Q8H PRN PRN Reason: Nausea and Vomiting Pharmacy Consult (Consult Rx Perform Med Rec) 1 each MISCELLANE ONCE PRN PRN Reason: Consult order Sodium Chloride (0.9 % Sodium Chloride Flush 3 Ml Syringe) 3 ml IVFLUSH QSHIFT EARL Physical Exam Vital Signs and Narrative: Vital Signs: Last Vital Signs Temp 99.8 F 07/11/22 19:20 Pulse 134 H 07/11/22 20:00 Resp 20 07/11/22 20:00 BP 139/94 H 07/11/22 20:00 Pulse Ox 96 07/11/22 11:15 O2 Del Method Room Air 07/11/22 11:15 BMI result Body Mass Index 31.3 Constitutional - Awake and Alert, No apparent distress Eyes - PERRLA, EOMI Cardiovascular - S1S2, irregularly irregular, tachycardic, No edema Respiratory - Normal lung expansion, Normal respiratory effort, No respiratory distress, CTA bilaterally Gastrointestinal - NT / ND; +BS; No rebound or guarding Extremities - no calf tenderness bilaterally, no swelling Skin - Warm/Dry Neurological - Alert & oriented x3 Psychological - Appropriate affec Results Labs 07/11/22 11:48 07/11/22 11:48 Labs: Laboratory Results - last 24 hr 07/11/22 07/11/22 07/11/22 11:48 11:48 11:48 MCV 90.2 MCH 31.1 MCHC 34.5 RDW 13.1 Plt Count 290 MPV 9.8 Immature Gran % (Auto) 0.5 H Neut % (Auto) 77.6 H Lymph % (Auto) 12.9 L Amador % (Auto) 8.8 Eos % (Auto) 0.1 Baso % (Auto) 0.1 Lymph # (Auto) 1.9 Amador # (Auto) 1.3 H Eos # (Auto) 0.0 Baso # (Auto) 0.0 Abs Immat Gran (auto) 0.07 H Absolute Neuts (auto) 11.7 H Absolute Nucleated RBC 0.000 Nucleated RBC % (auto) 0.0 Anion Gap 14 Estim Creat Clear Calc 70.9 Estimated GFR 59 Random Glucose 109 Lactic Acid Calcium 9.6 Magnesium 2.0 Total Bilirubin 1.0 Direct Bilirubin 0.3 AST 26 ALT 27 Alkaline Phosphatase 66 Troponin I High Sens B-Natriuretic Peptide Total Protein 7.0 Albumin 4.4 Triglycerides 75 Lipase 113 H Urine Color Urine Appearance Urine pH Ur Specific [place] Urine Protein Urine Glucose (UA) Urine Ketones Urine Blood Urine Nitrite Ur Leukocyte Esterase Urine RBC Urine WBC Ur Squamous Epith Cells Urine Bacteria Hyaline Casts COVID-19 (COMPA) Negative COVID-19 Clin Com See Note 07/11/22 07/11/22 07/11/22 11:48 17:01 19:00 MCV MCH MCHC RDW Plt Count MPV Immature Gran % (Auto) Neut % (Auto) Lymph % (Auto) Amador % (Auto) Eos % (Auto) Baso % (Auto) Lymph # (Auto) [place] # (Auto) Eos # (Auto) Baso # (Auto) Abs Immat Gran (auto) Absolute Neuts (auto) Absolute Nucleated RBC Nucleated RBC % (auto) Anion Gap Estim Creat Clear Calc Estimated GFR Random Glucose Lactic Acid Calcium Magnesium Total Bilirubin Direct Bilirubin AST ALT Alkaline Phosphatase Troponin I High Sens 13.4 21.2 D B-Natriuretic Peptide Total Protein Albumin Triglycerides Lipase Urine Color Yellow Urine Appearance Clear Urine pH 6.5 Ur Specific [place] >= 1.030 H Urine Protein 300 (3+) H Urine Glucose (UA) Negative Urine Ketones 40 Urine Blood Trace H Urine Nitrite Negative Ur Leukocyte Esterase Negative Urine RBC 0-2 Urine WBC 0-5 Ur Squamous Epith Cells 3-5 Urine Bacteria None Seen Hyaline Casts 0-2 COVID-19 (COMPA) COVID-19 Clin Com 07/11/22 07/11/22 19:46 19:46 MCV MCH MCHC RDW Plt Count MPV Immature Gran % (Auto) Neut % (Auto) Lymph % (Auto) Am[place] % (Auto) Eos % (Auto) Baso % (Auto) Lymph # (Auto) [place] # (Auto) Eos # (Auto) Baso # (Auto) Abs Immat Gran (auto) Absolute Neuts (auto) Absolute Nucleated RBC Nucleated RBC % (auto) Anion Gap Estim Creat Clear Calc Estimated GFR Random Glucose Lactic Acid 1.3 Calcium Magnesium Total Bilirubin Direct Bilirubin AST ALT Alkaline Phosphatase Troponin I High Sens B-Natriuretic Peptide 369 H Total Protein Albumin Triglycerides Lipase Urine Color Urine Appearance Urine pH Ur Specific [place] Urine Protein Urine Glucose (UA) Urine Ketones Urine Blood Urine Nitrite Ur Leukocyte Esterase Urine RBC Urine WBC Ur Squamous Epith Cells Urine Bacteria Hyaline Casts COVID-19 (COMPA) COVID-19 Clin Com Imaging Radiologist's Impressions: Impressions Abdomen/Pelvis CT 07/11/22 17:51 IMPRESSION: Normal pancreas. Diverticulosis of the colon. Wall thickening of the sigmoid colon questionable for mild sigmoid diverticulitis. Fleischner guidelines were followed. Assessment and Plan (1) Nausea & vomiting: Status: Acute (2) Diverticulitis: Status: Acute (3) Atrial fibrillation with rapid ventricular response: Status: Acute Plan 66-year-old male with history of atrial fibrillation not on anticoagulation, sarcoidosis, and COPD admitted for acute diverticulitis with PO intolerance and atrial fibrillation with RVR. #Acute diverticulitis -CT showing mild sigmoid diverticulitis. No abscess or perforation -GI panel and CDiff screen ordered -IV zosyn 3.375g q6h (initiated 07/11) -Clear liquid diet, advance as tolerated -Ondansetron prn -Leukocytosis 15.1- likely r/t infection and inflammatory due to vomiting. Foll ow CBC. tachycardia r/t afib rvr, not sepsis -Continue gentle IVF # atrial fibrillation with RVR -Converted to NSR, rate 60 during exam, but had been tachycardic to 165 -TSH pending, mag normal -Appreciate cardiology input -echocardiogram -HR 60, hold on further rate control -[id number]- VASc score 0 #Elevated BNP -likely related to AFIB -Clinically euvolemic -CXR pending #Elevated trop -initial 13.0, repeat 21.2. Repeat trop am -EKG without ischemic changes -no anginal CP #COPD -no acute exacerbation DVT prophylaxis-Lovenox Full code Patient requires inpatient stay of at least 2 midnights for management of acute diverticulitis with p.o. intolerance and AFib with RVR Time Spent With Patient Time: Total time managing care of this patient today ____ minutes. Quality Stroke Does the patient have a stroke diagnosis?: No VTE Prior VTE?: No VTE Risk Level:: Medical - moderate - high VTE Device Contraindication: Treatment Not Indicated VTE Drug Contraindication: N/A - Med Ordered
--- NOTE | 2022-07-11 21:00 | PHA.MEDREC ---
Pharmacy Consult ? Medication Reconciliation Pharmacy has completed the medication reconciliation. pATIENT TAKES PRN SYMBICORT (AWARE IT IS SCHEDULED) PRICE
[2022-07-11 21:05] LABS: TSH reflex Free T4 3.09 uIU/mL (0.32-4.0)
[2022-07-11] MEDS: Lactated Ringers 1,000 ML 80 ML IVCONT (22:22)
[2022-07-11] MEDS: Enoxaparin Sodium 40 MG/0.4 ML SYRINGE SUBCUT (22:31)
[2022-07-11 22:35] VITALS: BP 147/76; PULSE 56; RESP 16; TEMP 37; O2SAT 97
--- NOTE | 2022-07-11 22:39 | PC.NURSE ---
This proposal manager writer assumed care of this Pt at 2100. Pt A&Ox4, states I can't call it pain, just chest discomfort like a tightness . HR 53 on bedside monitor. Fluids running as ordered. Pt ambulated independently to BR with steady gait.
[2022-07-12] VITALS (9 sets, daily range): BP systolic 145–184; BP diastolic 72–98; PULSE 54–133; RESP 16–20; TEMP 36.6–37.3; O2SAT 95–98
--- NOTE | 2022-07-12 | MHC.EDTECH ---
0000 ROUNDING DONE ,VITALS SIGN TAKEN ,PT IS STAYING WITH PATIENT ,PT DRANK AN APPLE JUICE ,PT WAS GIVEN TURKEY SANDWICH ,PUDDING AND ORIANA JENNY .
--- NOTE | 2022-07-12 | ECG_ITS ---
Test Reason : tachycardia Blood Pressure : / mmHG Vent. Rate : 157 BPM Atrial Rate : 000 BPM P-R Int : 000 ms QRS Dur : 148 ms QT Int : 350 ms P-R-T Axes : 000 196 -09 degrees QTc Int : 565 ms Atrial fibrillation with rapid ventricular response with premature ventricular or aberrantly conducted complexes Right bundle branch block Abnormal ECG When compared with ECG of 11-JUL-2022 20:21, Atrial fibrillation has replaced Sinus rhythm Vent. rate has increased BY 96 BPM Questionable change in QRS axis T wave inversion now evident in Anterior leads Referred By: Randy Dobson Electronically Signed By:Jake Brown
[2022-07-12] MEDS: 0.9 % Sodium Chloride Flush 3 ML SYRINGE IVFLUSH ×2 (00:33→20:48)
[2022-07-12] MEDS: Piperacillin Sodium/Tazobactam 3.375 GM in 0.9 % Sodium Chloride 50 ML IV ×4 (01:59→20:55)
[2022-07-12] MEDS: ondansetron HCL 4 MG/2 ML VIAL IVPUSH ×3 (02:01→21:00)
--- NOTE | 2022-07-12 02:11 | PC.NURSE ---
Pt reported some nausea, medicated per MAR. RN to RN reprort given to Florence. Pt will be transported to room 454 by blending technician, Pt and aware of plan.
[2022-07-12 05:52] LABS: MANUAL DIFF FLAG NO
[2022-07-12 06:11] LABS: Basophils Percent Auto 0.3 % (0-2); Eosinophils Percent Auto 0.2 % (0-4); Hemoglobin 13.6 g/dl (14.0-18.0); Imm Gran Abs Auto 0.06 X10*3/uL (0.00-0.03); Imm Gran Pct Auto 0.5 % (0.0-0.4); Lymphocytes Absolute Auto 1.7 X10*3/uL (1.2-4.9); Lymphocytes Percent Auto 14.4 % (20-40); Mean Corpuscular HGB Conc 34.9 g/dl (31.0-36.0); Mean Corpuscular Hemoglobin 31.7 pg (27.0-33.0); Mean Corpuscular Volume 90.9 fL (80.0-98.0); Mean Platelet Volume 10.1 fL (9.4-12.4); Monocytes Absolute Auto 1.1 X10*3/uL (0.1-1.2); Monocytes Percent Auto 9.2 % (2-11); Neutrophils Absolute Auto 8.7 x10*3/uL (2.0-8.3); Neutrophils Percent Auto 75.4 % (45-73); Platelet Count 260 X10*3/uL (160-400); Red Blood Count 4.29 X10*6/uL (4.60-5.80); Red Cell Distribution Width 13.1 % (11.0-16.0); White Blood Count 11.5 X10*3/uL (4.8-10.8)
[2022-07-12 06:15] LABS: Troponin-I High Sensitivity 38.7 ng/L (<3.5-35.0)
[2022-07-12 06:20] LABS: Anion Gap 13 (12-20); Blood Urea Nitrogen 29 mg/dL (9-16); Calcium 8.4 mg/dL (8.4-10.2); Carbon Dioxide 22 mmol/L (22-29); Chloride 108 mmol/L (96-108); Creatinine Clr Calc Pharmacy 72.1; Estimated Glomerular Filt Rate 60; Glucose Random 118 mg/dL (60-115); Potassium 3.7 mmol/L (3.3-5.1); Sodium 139 mmol/L (135-145)
--- NOTE | 2022-07-12 07:00 | CA_ITS ---
Transthoracic Echocardiogram Patient (Last, First, Middle): Richard Figueroa, Gender: Male Date of : 1955 Age: 66 Procedure Date: 07/12/2022 Procedure Type: Transthoracic Echocardiogram Location: [facility] [place] Height: 177.8 cm Weight: 98.88 kg BSA: 2.17 m2 Heart Rate: bpm BP: 152 / 85 mmHg Associate Veterinarian: Referring MD: Anne GROSS Symptoms: afib rvr Study Quality: Adequate ECG Rhythm: Sinus with extra beats Conclusions: - Normal left ventricular size and systolic function. There is mildly increased left ventricular wall thickness. The visually estimated ejection fraction is between 60-65%. - Mildly increased right ventricular cavity size. There is normal right ventricular systolic function. - There is mild dilatation of the ascending aorta measuring 3.50 cm. Findings Left Ventricle Normal left ventricular size and systolic function. There is mildly increased left ventricular wall thickness. The visually estimated ejection fraction is between 60-65%. There is no evidence of regional wall motion abnormalities. Diastolic function is normal for age. Right Ventricle Mildly increased right ventricular cavity size. There is normal right ventricular systolic function. Atria The left atrium is normal in size. Aortic Valve The aortic valve structure and function is likely normal. There is no aortic valve stenosis. There is no aortic valve regurgitation. Mitral Valve Normal mitral valve structure and function. There is no mitral valve regurgitation. There is no mitral valve stenosis. Pulmonic Valve Normal pulmonic valve structure and function. There is no pulmonic valve regurgitation. Tricuspid Valve Normal tricuspid valve structure and function. There is no tricuspid valve regurgitation. Normal right atrial pressure. There is no evidence of pulmonary hypertension. Great Vessels There is mild dilatation of the ascending aorta measuring 3.50 cm. The visualized portions of the pulmonary artery and branches are normal. Venous The inferior vena cava is normal in size and collapses greater than 50% with inspiration. Pericardium/Pleural There is no evidence of pericardial effusion. Prior Study Comparison No prior study available for comparison. Measurements 2D Linear Measurements IVSd: 1.27 0.6-0.9/0.6-1.0 cm LVIDd: 5.44 3.9-5.3/4.2-5.9 cm LVIDd Index: 2.51 2.4-3.2/2.2-3.1 cm/m2 LVIDs: 3.19 2.0-3.6 cm LVPWd: 1.24 0.7-1.1 cm Ao Root: 3.50 2.1-3.5 cm LA Diam: 3.80 2.7-3.8/3.0-4.0 cm LAIDs Index: 1.75 1.5-2.3 cm/m2 LV Mass: 355.13 67-162/88-224 g LV Mass Index: 163.65 43-95/49-115 g/m2 LVOT Diam: 2.40 3.0+(-)1.3 cm Mitral Valve MV Pk E: 0.98 MV PK A: 0.75 MV Decel Time: 262.00 E/A: 1.30 E'Lateral: 10.60 E'Medial: 8.81 E/E' Med: 11.10 E/E' Lat: 9.20 PHT: 77.00 MVA PHT: 2.86 Decel Collier: 3.73 Aortic Valve AoV Pk Nadir: 1.42 AoV Mn Nadir: 0.95 AoV VTI: 0.38 AoV Pk Grad: 8.00 Aov Mn Grad: 4.00 STARLA Cont.VTI: 2.82 LVOT LVOT Pk Nadir: 1.05 LVOT Mn Nadir: 0.65 LVOT VTI: 0.24 LVOT Pk Grad: 4.00 LVOT Mn Grad: 2.00 LVOT Diam: 2.40 LVOT Area: 4.52 Diastolic Function MV Pk E: 0.98 MV Pk A: 0.75 E/A: 1.30 E'Medial: 8.81 E/E' Med: 11.10 E' Laterial: 10.60 E/E' Lat: 9.20 Right Ventricle TAPSE (mm): 36.00 Tricuspid Valve TR Pk Nadir: 1.71 TR Pk Grad: 12.00 RA Press: 3.00 RVSP: 15.00 Great Vessels Aorta Ao Root-2D: 3.50 2.0-3.7 cm Ao Asc: 3.50 2.1-3.4 cm Pulmonary Valve PV Pk Nadir: 1.07 Peak PV Grad: 5.00 Updated in Other Vendor System with Status of Final Jake Brown MD electronically signed on 07/12/2022 5:31:05 PM with status of Final
[2022-07-12] MEDS: Fluticasone/Vilanterol 200/25 BLST.W.DEV 1 PUFF INHALE (08:27)
[2022-07-12] MEDS: Lactated Ringers 1,000 ML 80 ML IVCONT ×2 (08:46→23:03)
--- NOTE | 2022-07-12 09:50 | MHC.CM.PN ---
CM met with Patient and his /HCP at bedside. 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 Patient and his live in [place] and are here visiting their Daughter. Home self care is the goal and CM has initiated and will follow for dc planning. Patient is Rodríguez marie'qian x3 and his PCP is Dr. Jassi Larson in [facility].
--- NOTE | 2022-07-12 11:25 | HO.PM.IMPN ---
Subjective Subjective Date of Service: 07/12/22 Interval History: Seen and evaluated this morning Feels better, starting to tolerate clears pain fairly controlled no other overnight events Review of Systems Review of Systems: Yes all other systems are reviewed and are negative Physical Exam Vital Signs: Vital Signs: Last Vital Signs Temp 98.3 F 07/12/22 11:02 Pulse 54 07/12/22 11:02 Resp 20 07/12/22 11:02 BP 156/87 H 07/12/22 11:02 Pulse Ox 95 07/12/22 11:02 O2 Del Method Room Air 07/12/22 11:02 BMI result Body Mass Index 31.3 Const: Other: Constitutional : Awake, interactive, not in distress Neck : Normal inspection, Supple Cardiovascular : RRR, no JVP, no lower extremity edema Respiratory : good bilateral air entry, no crackles, wheezes or rhonchi Gastrointestinal: soft, lax, Normal bowel sounds, LLQ mild tenderness with deep palpation Skin : Warm, Dry Neurological : Alert & oriented x3, No focal deficit Objective Data Active Medications Acetaminophen (Acetaminophen 325 Mg Tablet) 650 mg PO Q6H PRN PRN Reason: Pain, Mild (Pain Scale 1-3) Enoxaparin Sodium (Enoxaparin Sodium 40 Mg/0.4 Ml Syringe) 40 mg SUBCUT Q24H [facility] Last Admin: 07/11/22 22:31 Dose: 40 mg Documented By: SERRANRicardo Fluticasone/Vilanterol (Fluticasone/Vilanterol 200/25 Blst.W.Dev) 1 puff INHALE RDAILY [facility] Last Admin: 07/12/22 08:27 Dose: 1 puff Documented By: JOLEEN Diltiazem HCl 125 mg/ Sodium (Chloride) 125 mls @ 0 mls/hr IVCONT .Q0M [facility]; Protocol Piperacillin Sod/Tazobactam (Sod 3.375 gm/ Sodium Chloride) 50 mls @ 100 mls/hr IV Q6H [facility] Last Infusion: 07/12/22 09:25 Dose: 0 mls/hr Documented By: GAMA Lactated Ringer's (Lr) 1,000 mls @ 80 mls/hr IVCONT .[id number] [facility] Last Admin: 07/12/22 08:46 Dose: 80 mls/hr Documented By: GAMA Ondansetron HCl (Ondansetron Hcl 4 Mg/2 Ml Vial) 4 mg IVPUSH Q8H PRN PRN Reason: Nausea and Vomiting Last Admin: 07/12/22 02:01 Dose: 4 mg Documented By: MARTY Pharmacy Consult (Consult Rx Perform Med Rec) 1 each MISCELLANE ONCE PRN PRN Reason: Consult order Sodium Chloride (0.9 % Sodium Chloride Flush 3 Ml Syringe) 3 ml IVFLUSH QSHIFT [facility] Last Admin: 07/12/22 07:37 Dose: Not Given Documented By: GAMA Non-Admin Reason: See Note Labs 07/12/22 05:38 07/12/22 05:38 Labs: Laboratory Results - last 24 hr 07/11/22 07/11/22 07/11/22 11:48 11:48 11:48 MCV 90.2 MCH 31.1 MCHC 34.5 RDW 13.1 Plt Count 290 MPV 9.8 Immature Gran % (Auto) 0.5 H Neut % (Auto) 77.6 H Lymph % (Auto) 12.9 L [place] % (Auto) 8.8 Eos % (Auto) 0.1 Baso % (Auto) 0.1 Lymph # (Auto) 1.9 [place] # (Auto) 1.3 H Eos # (Auto) 0.0 Baso # (Auto) 0.0 Abs Immat Gran (auto) 0.07 H Absolute Neuts (auto) 11.7 H Absolute Nucleated RBC 0.000 Nucleated RBC % (auto) 0.0 Anion Gap 14 Estim Creat Clear Calc 70.9 Estimated GFR 59 Random Glucose 109 Lactic Acid Calcium 9.6 Magnesium 2.0 Total Bilirubin 1.0 Direct Bilirubin 0.3 AST 26 ALT 27 Alkaline Phosphatase 66 Troponin I High Sens B-Natriuretic Peptide Total Protein 7.0 Albumin 4.4 Triglycerides 75 Lipase 113 H TSH Urine Color Urine Appearance Urine pH Ur Specific [place] Urine Protein Urine Glucose (UA) Urine Ketones Urine Blood Urine Nitrite Ur Leukocyte Esterase Urine RBC Urine WBC Ur Squamous Epith Cells Urine Bacteria Hyaline Casts COVID-19 (COMPA) Negative COVID-19 Clin Com See Note 07/11/22 07/11/22 07/11/22 11:48 17:01 19:00 MCV MCH MCHC RDW Plt Count MPV Immature Gran % (Auto) Neut % (Auto) Lymph % (Auto) [place] % (Auto) Eos % (Auto) Baso % (Auto) Lymph # (Auto) [place] # (Auto) Eos # (Auto) Baso # (Auto) Abs Immat Gran (auto) Absolute Neuts (auto) Absolute Nucleated RBC Nucleated RBC % (auto) Anion Gap Estim Creat Clear Calc Estimated GFR Random Glucose Lactic Acid Calcium Magnesium Total Bilirubin Direct Bilirubin AST ALT Alkaline Phosphatase Troponin I High Sens 13.4 21.2 D B-Natriuretic Peptide Total Protein Albumin Triglycerides Lipase TSH Urine Color Yellow Urine Appearance Clear Urine pH 6.5 Ur Specific [place] >= 1.030 H Urine Protein 300 (3+) H Urine Glucose (UA) Negative Urine Ketones 40 Urine Blood Trace H Urine Nitrite Negative Ur Leukocyte Esterase Negative Urine RBC 0-2 Urine WBC 0-5 Ur Squamous Epith Cells 3-5 Urine Bacteria None Seen Hyaline Casts 0-2 COVID-19 (COMPA) COVID-19 [employer] 07/11/22 07/11/22 07/11/22 19:46 19:46 19:46 MCV MCH MCHC RDW Plt Count MPV Immature Gran % (Auto) Neut % (Auto) Lymph % (Auto) [place] % (Auto) Eos % (Auto) Baso % (Auto) Lymph # (Auto) [place] # (Auto) Eos # (Auto) Baso # (Auto) Abs Immat Gran (auto) Absolute Neuts (auto) Absolute Nucleated RBC Nucleated RBC % (auto) Anion Gap Estim Creat Clear Calc Estimated GFR Random Glucose Lactic Acid 1.3 Calcium Magnesium Total Bilirubin Direct Bilirubin AST ALT Alkaline Phosphatase Troponin I High Sens B-Natriuretic Peptide 369 H Total Protein Albumin Triglycerides Lipase TSH 3.09 Urine Color Urine Appearance Urine pH Ur Specific [place] Urine Protein Urine Glucose (UA) Urine Ketones Urine Blood Urine Nitrite Ur Leukocyte Esterase Urine RBC Urine WBC Ur Squamous Epith Cells Urine Bacteria Hyaline Casts COVID-19 (COMPA) COVID-19 [employer] 07/12/22 07/12/22 07/12/22 05:38 05:38 05:38 MCV 90.9 MCH 31.7 MCHC 34.9 RDW 13.1 Plt Count 260 MPV 10.1 Immature Gran % (Auto) 0.5 H Neut % (Auto) 75.4 H Lymph % (Auto) 14.4 L [place] % (Auto) 9.2 Eos % (Auto) 0.2 Baso % (Auto) 0.3 Lymph # (Auto) 1.7 [place] # (Auto) 1.1 Eos # (Auto) 0.0 Baso # (Auto) 0.0 Abs Immat Gran (auto) 0.06 H Absolute Neuts (auto) 8.7 H Absolute Nucleated RBC 0.000 Nucleated RBC % (auto) 0.0 Anion Gap 13 Estim Creat Clear Calc 72.1 Estimated GFR 60 Random Glucose 118 H Lactic Acid Calcium 8.4 D Magnesium Total Bilirubin Direct Bilirubin AST ALT Alkaline Phosphatase Troponin I High Sens 38.7 H D B-Natriuretic Peptide Total Protein Albumin Triglycerides Lipase TSH Urine Color Urine Appearance Urine pH Ur Specific [place] Urine Protein Urine Glucose (UA) Urine Ketones Urine Blood Urine Nitrite Ur Leukocyte Esterase Urine RBC Urine WBC Ur Squamous Epith Cells Urine Bacteria Hyaline Casts COVID-19 (COMPA) COVID-19 Clin Com Assessment and Plan (1) Atrial fibrillation with rapid ventricular response: Status: Acute (2) Diverticulitis: Status: Acute Plan 66-year-old male with history of atrial fibrillation not on anticoagulation, sarcoidosis, and COPD admitted for acute diverticulitis with PO intolerance and atrial fibrillation with RVR. #Acute diverticulitis CT showing mild sigmoid diverticulitis. No abscess or perforation GI panel and CDiff screen pending Clear liquid diet, advance as tolerated Ondansetron prn Continue gentle IVF IV zosyn 3.375g q6h (initiated 07/11) # atrial fibrillation with RVR Converted to NSR, rate 60s TSH normal, mag normal pending echo [id number] VASc score 1, turning 67 in few months pending cardiology input on AC #Elevated BNP related to AFIB euvolemic, normal CXR Hold on diuretics #Elevated trop trended flat EKG without ischemic changes repeat EKG for any chest pain #COPD no acute exacerbation DVT prophylaxis Lovenox Full code Patient requires inpatient stay overnight for management of acute diverticulitis with p.o. intolerance and AFib with RVR pending cardio eval Time Spent With Patient Time: Total time managing care of this patient today ____ minutes. Quality Stroke Does the patient have a stroke diagnosis?: No VTE Prior VTE?: No VTE Risk Level:: Medical - moderate - high VTE Device Contraindication: Treatment Not Indicated VTE Drug Contraindication: N/A - Med Ordered
--- NOTE | 2022-07-12 15:07 | P.CONCA_ITS ---
History of Present Illness History of Present Illness Date of Service: 07/12/22 Requesting physician: Jane Peralta Chief complaint: atrial flutter Narrative: [age] gentleman with episode of atrial flutter. He is presenting for abdominal pain and diverticulitis. He is unable to tolerate p.o. fluids or food currently. Has been feeling sick for few days. He also had some palpitations and was noticed to be in atrial flutter going at 150 beats per minute. He was started on Cardizem drip but it appears that he broke out of atrial flutter to sinus rhythm. He has some history of atrial fibrillation which was diagnosed in the past while he was in [place] where he lives. He is just here to with his daughter. He also has history of sarcoidosis and as per the who is a nurse, there was pulmonary as well as cardiac involvement in the past. He had lymph node biopsy done to diagnose it. He also has occupational exposures which led to lung disease. He is a lifelong nonsmoker by report. He is hypertensive but does not carry a diagnosis of hypertension. He is also in pain so is difficult to say whether he truly has elevated blood pressures as pain can cause elevated blood pressures 2. No bleeding concerns. [facility] Past Medical History Medical History Atrial fibrillation COPD (chronic obstructive pulmonary disease) Sarcoidosis Social History Social History Household Members: Spouse Housing: House Do you presently have visiting nurse or other home services: No Alcohol intake: never Patient Tobacco Use Status: Never used Tobacco Substance Use Type: Marijuana service: No Current occupational status: employed Meds Allergies Allergy/AdvReac Type Severity Reaction Status Date / Time No Known Allergies Allergy Verified 07/11/22 11:19 Active Medications: Current Medications Acetaminophen (Acetaminophen 325 Mg Tablet) 650 mg PO Q6H PRN PRN Reason: Pain, Mild (Pain Scale 1-3) Enoxaparin Sodium (Enoxaparin Sodium 40 Mg/0.4 Ml Syringe) 40 mg SUBCUT Q24H [facility] Last Admin: 07/11/22 22:31 Dose: 40 mg Fluticasone/Vilanterol (Fluticasone/Vilanterol 200/25 Blst.W.Dev) 1 puff INHALE RDAILY [facility] Last Admin: 07/12/22 08:27 Dose: 1 puff Diltiazem HCl 125 mg/ Sodium (Chloride) 125 mls @ 0 mls/hr IVCONT .Q0M [facility]; Protocol Piperacillin Sod/Tazobactam (Sod 3.375 gm/ Sodium Chloride) 50 mls @ 100 mls/hr IV Q6H [facility] Last Infusion: 07/12/22 14:23 Dose: Infused Lactated Ringer's (Lr) 1,000 mls @ 80 mls/hr IVCONT .[id number] [facility] Last Admin: 07/12/22 08:46 Dose: 80 mls/hr Ondansetron HCl (Ondansetron Hcl 4 Mg/2 Ml Vial) 4 mg IVPUSH Q8H PRN PRN Reason: Nausea and Vomiting Last Admin: 07/12/22 12:39 Dose: 4 mg Pharmacy Consult (Consult Rx Perform Med Rec) 1 each MISCELLANE ONCE PRN PRN Reason: Consult order Sodium Chloride (0.9 % Sodium Chloride Flush 3 Ml Syringe) 3 ml IVFLUSH QSHIFT [facility] Last Admin: 07/12/22 13:47 Dose: Not Given Home Medications Medication Instructions Recorded Confirmed Last Taken Type budesonide-formoterol HFA 160 2 puff inhalation DAILY 07/11/22 07/11/22 Unknown History mcg-4.5 mcg/actuation aerosol inhaler (Symbicort) ibuprofen 600 mg tablet 600 mg PO Q6H PRN pain 07/11/22 07/11/22 Unknown History Physical Exam Vital Signs: Vital Signs: Last Vital Signs Temp 98.3 F 07/12/22 11:02 Pulse 54 07/12/22 11:02 Resp 20 07/12/22 11:02 BP 156/87 H 07/12/22 11:02 Pulse Ox 95 07/12/22 11:02 O2 Del Method Room Air 07/12/22 11:02 BMI result Body Mass Index 31.3 GENERAL APPEARANCE: in no acute distress, pleasant. NECK: no carotid bruit, no jugular venous distention. SKIN: no suspicious lesions, warm and dry. HEART: no murmurs, regular rate and rhythm. LUNGS: clear to auscultation bilaterally. ABDOMEN: soft, tenderness lower abdomen. EXTREMITIES: no edema. PERIPHERAL PULSES: equal. NEUROLOGIC: No gross deficits, AAO X 3 Objective Labs and Meds 07/12/22 05:38 07/12/22 05:38 Lab results: Laboratory Results - last 24 hr 07/11/22 07/11/22 07/11/22 11:48 17:01 19:00 WBC RBC Hgb Hct MCV MCH MCHC RDW Plt Count MPV Immature Gran % (Auto) Neut % (Auto) Lymph % (Auto) [place] % (Auto) Eos % (Auto) Baso % (Auto) Lymph # (Auto) [place] # (Auto) Eos # (Auto) Baso # (Auto) Abs Immat Gran (auto) Absolute Neuts (auto) Absolute Nucleated RBC Nucleated RBC % (auto) Sodium Potassium Chloride Carbon Dioxide Anion Gap BUN Creatinine Estim Creat Clear Calc Estimated GFR Random Glucose Lactic Acid Calcium Troponin I High Sens 21.2 D B-Natriuretic Peptide Triglycerides 75 TSH Urine Color Yellow Urine Appearance Clear Urine pH 6.5 Ur Specific [place] >= 1.030 H Urine Protein 300 (3+) H Urine Glucose (UA) Negative Urine Ketones 40 Urine Blood Trace H Urine Nitrite Negative Ur Leukocyte Esterase Negative Urine RBC 0-2 Urine WBC 0-5 Ur Squamous Epith Cells 3-5 Urine Bacteria None Seen Hyaline Casts 0-2 07/11/22 07/11/22 07/11/22 19:46 19:46 19:46 WBC RBC Hgb Hct MCV MCH MCHC RDW Plt Count MPV Immature Gran % (Auto) Neut % (Auto) Lymph % (Auto) [place] % (Auto) Eos % (Auto) Baso % (Auto) Lymph # (Auto) [place] # (Auto) Eos # (Auto) Baso # (Auto) Abs Immat Gran (auto) Absolute Neuts (auto) Absolute Nucleated RBC Nucleated RBC % (auto) Sodium Potassium Chloride Carbon Dioxide Anion Gap BUN Creatinine Estim Creat Clear Calc Estimated GFR Random Glucose Lactic Acid 1.3 Calcium Troponin I High Sens B-Natriuretic Peptide 369 H Triglycerides TSH 3.09 Urine Color Urine Appearance Urine pH Ur Specific [place] Urine Protein Urine Glucose (UA) Urine Ketones Urine Blood Urine Nitrite Ur Leukocyte Esterase Urine RBC Urine WBC Ur Squamous Epith Cells Urine Bacteria Hyaline Casts 07/12/22 07/12/22 07/12/22 05:38 05:38 05:38 WBC 11.5 H RBC 4.29 L Hgb 13.6 L Hct 39.0 L MCV 90.9 MCH 31.7 MCHC 34.9 RDW 13.1 Plt Count 260 MPV 10.1 Immature Gran % (Auto) 0.5 H Neut % (Auto) 75.4 H Lymph % (Auto) 14.4 L [place] % (Auto) 9.2 Eos % (Auto) 0.2 Baso % (Auto) 0.3 Lymph # (Auto) 1.7 [place] # (Auto) 1.1 Eos # (Auto) 0.0 Baso # (Auto) 0.0 Abs Immat Gran (auto) 0.06 H Absolute Neuts (auto) 8.7 H Absolute Nucleated RBC 0.000 Nucleated RBC % (auto) 0.0 Sodium 139 Potassium 3.7 Chloride 108 Carbon Dioxide 22 Anion Gap 13 BUN 29 H Creatinine 1.22 Estim Creat Clear Calc 72.1 Estimated GFR 60 Random Glucose 118 H Lactic Acid Calcium 8.4 D Troponin I High Sens 38.7 H D B-Natriuretic Peptide Triglycerides TSH Urine Color Urine Appearance Urine pH Ur Specific [place] Urine Protein Urine Glucose (UA) Urine Ketones Urine Blood Urine Nitrite Ur Leukocyte Esterase Urine RBC Urine WBC Ur Squamous Epith Cells Urine Bacteria Hyaline Casts Imaging Radiologist's impression: Impressions Abdomen/Pelvis CT 07/11/22 17:51 IMPRESSION: Normal pancreas. Diverticulosis of the colon. Wall thickening of the sigmoid colon questionable for mild sigmoid diverticulitis. Fleischner guidelines were followed. Chest X-Ray 07/11/22 20:37 IMPRESSION: No evidence for acute disease in the chest. Assessment and Plan (1) Atrial flutter: Status: Acute Plan 66 year gentleman who is presenting for diverticulitis and developed regular tachycardia at 150 beats per minute concerning for 2-1 atrial flutter. He also has background history of atrial fibrillation. His blood pressure is elevated but also has abdominal pain and maybe that is playing a role in the elevated blood pressures. Does not carry a diagnosis of hypertension. In any case his chads Vasc score is 0-1 if he consider hypertension as 1 of the diagnosis currently. He is 66 years old and will be turning 67 in few months. Previously had atrial fibrillation and he has seen a rn office in [place], [place]. The who is a nurse is saying that there was cardiac involvement from sarcoidosis previously. Given his arrhythmia I think is important to understand if there is any cardiomyopathy due to sarcoidosis. I will do echocardiography to make sure he does not have added like cardiomyopathy basal septal thinning. I think his atrial flutter is somewhat explain with diverticulitis and there are related stress on the body. I think currently does not need anticoagulation. He can be started on Toprol-XL 25 mg once a day. I have explained it to him that he needs to follow up with his rn office as he returns back in [facility]. Thank you for allowing me to participate in the care of your patient. Please feel free to contact me if you have any questions. Time Spent With Patient Time: Total time managing care of this patient today ____ minutes. Procedures Date of Service Date of Service: 07/12/22
[2022-07-12] MEDS: amLODIPine Besylate 5 MG TABLET PO (16:37)
[2022-07-12] MEDS: Enoxaparin Sodium 40 MG/0.4 ML SYRINGE SUBCUT (21:00)
[2022-07-12] MEDS: dilTIAZem HCL 50 MG/10 ML VIAL 10 MG IVPUSH (21:57)
[2022-07-12] MEDS: Labetalol HCL 100 MG/20 ML VIAL 10 MG IVPUSH (22:01)
[2022-07-12] MEDS: Metoprolol Tartrate 5 MG/5 ML VIAL IVPUSH (23:01)
[2022-07-13] VITALS (10 sets, daily range): BP systolic 104–140; BP diastolic 72–98; PULSE 51–148; RESP 18–20; TEMP 35.9–37.1; O2SAT 91–96
[2022-07-13] MEDS: dilTIAZem HCL 50 MG/10 ML VIAL 10 MG IVPUSH (00:42)
--- NOTE | 2022-07-13 00:53 | PC.NURSE ---
At 2145 the hospitalist was notified pt heart rate was ranging from 130-150s, B/P was 191/91, an EKG was done showing A-Fib with RVR, Cardizem 10mg IVP and Labetolol 10mg given IVP, at 2305 HR 140s-150s and medicated with Lopressor 5mg, at 0045 pt heart rate at 130s-150s, medicated with Cardizem 10mg IVP, heart rate currently in the 120s, will cont to monitor.
[2022-07-13] MEDS: Piperacillin Sodium/Tazobactam 3.375 GM in 0.9 % Sodium Chloride 50 ML IV ×4 (01:41→20:36)
[2022-07-13] MEDS: dilTIAZem HCL 50 MG/10 ML VIAL 20 MG IVPUSH (02:07)
--- NOTE | 2022-07-13 02:13 | PC.NURSE ---
heart rate ranging from 130-160 Cardizem 20mg IVP given, will cont to monitor.
--- NOTE | 2022-07-13 03:38 | PM.EVENT ---
Event Note Date of Service: 07/13/22 Event Note: Patient with multiple episodes of AFib with RVR overnight requiring multiple IV pushes of SA homer blocking agents. Will initiate diltiazem drip Time Spent With Patient Time: Total time managing care of this patient today ____ minutes.
[2022-07-13] MEDS: dilTIAZem HCL 125 MG in 0.9 % Sodium Chloride 100 ML 10 MG IVCONT ×2 (04:03→23:18)
--- NOTE | 2022-07-13 04:25 | PC.NURSE ---
Heart rate remains 130-140s Cardizem drip started at 0403, please refer to MAR for titration.
--- NOTE | 2022-07-13 06:48 | PC.NURSE ---
At 0552 Hospitalist notified to pt heart rate is ranging from 100-150's no new orders given.
[2022-07-13] MEDS: Fluticasone/Vilanterol 200/25 BLST.W.DEV 1 PUFF INHALE (07:48)
[2022-07-13 08:03] LABS: Hematocrit 40.5 % (42.0-52.0); Hemoglobin 14.3 g/dl (14.0-18.0); Mean Corpuscular HGB Conc 35.3 g/dl (31.0-36.0); Mean Corpuscular Hemoglobin 31.5 pg (27.0-33.0); Mean Corpuscular Volume 89.2 fL (80.0-98.0); Mean Platelet Volume 10.2 fL (9.4-12.4); Platelet Count 269 X10*3/uL (160-400); Red Blood Count 4.54 X10*6/uL (4.60-5.80); Red Cell Distribution Width 12.5 % (11.0-16.0); White Blood Count 11.4 X10*3/uL (4.8-10.8)
[2022-07-13] MEDS: 0.9 % Sodium Chloride Flush 3 ML SYRINGE IVFLUSH ×2 (08:18→20:28)
[2022-07-13 08:22] LABS: Anion Gap 12 (12-20); Blood Urea Nitrogen 16 mg/dL (9-16); Calcium 8.5 mg/dL (8.4-10.2); Carbon Dioxide 22 mmol/L (22-29); Chloride 107 mmol/L (96-108); Creatinine Clr Calc Pharmacy 86.3; Estimated Glomerular Filt Rate > 60; Glucose Random 107 mg/dL (60-115); Potassium 3.4 mmol/L (3.3-5.1); Sodium 138 mmol/L (135-145)
[2022-07-13] MEDS: Omeprazole 40 MG CAPSULE.DR PO (10:48)
[2022-07-13] MEDS: Lactated Ringers 1,000 ML 80 ML IVCONT (10:49)
--- NOTE | 2022-07-13 14:14 | P.PNCA_ITS ---
Subjective Subjective Date of Service: 07/13/22 Interval history: Seen examined at bedside. Feeling better. Abdominal pain is improving. He is able to tolerate p.o.. Overnight he had multiple runs of atrial fibrillation. Currently in sinus rhythm. Physical Exam Vital Signs: Last Vital Signs Temp 97.5 F 07/13/22 11:00 Pulse 51 07/13/22 11:00 Resp 18 07/13/22 11:00 BP 140/80 H 07/13/22 11:00 Pulse Ox 96 07/13/22 11:00 O2 Del Method Room Air 07/13/22 11:00 BMI result Body Mass Index 31.3 GENERAL APPEARANCE: in no acute distress, pleasant. NECK: no carotid bruit, no jugular venous distention. SKIN: no suspicious lesions, warm and dry. HEART: no murmurs, regular rate and rhythm. LUNGS: clear to auscultation bilaterally. ABDOMEN: soft, tenderness lower abdomen. EXTREMITIES: no edema. PERIPHERAL PULSES: equal. NEUROLOGIC: No gross deficits, AAO X 3 Objective Labs and Meds 07/13/22 07:15 07/13/22 07:15 Lab results: Laboratory Results - last 24 hr 07/13/22 07/13/22 07:15 07:15 WBC 11.4 H RBC 4.54 L Hgb 14.3 Hct 40.5 L MCV 89.2 MCH 31.5 MCHC 35.3 RDW 12.5 Plt Count 269 MPV 10.2 Absolute Nucleated RBC 0.000 Nucleated RBC % (auto) 0.0 Sodium 138 Potassium 3.4 Chloride 107 Carbon Dioxide 22 Anion Gap 12 BUN 16 Creatinine 1.02 Estim Creat Clear Calc 86.3 Estimated GFR > 60 Random Glucose 107 Calcium 8.5 Progress Note: A&P Assessment and plan (1) Atrial fibrillation with rapid ventricular response: Status: Acute (2) Diverticulitis: Status: Acute Plan [age] gentleman with background of sarcoidosis was presenting with diverticulitis and developed atrial flutter and atrial fibrillation. He has known history of atrial fibrillation in the past. Currently in sinus rhythm. Adding Multaq 40 mg twice a day. Monitor heart rate closely. Avoid beta- nasima in Cardizem currently. Blood pressure in the hospital is elevated but he has been in pain and hard to know whether he has hypertension or not. Currently recommend not starting anticoagulation. Thank you for allowing me to participate in the care of your patient. Please feel free to contact me if you have any questions. Time Spent With Patient Time: Total time managing care of this patient today ____ minutes. Progress Note: Quality Stroke Does the patient have a stroke diagnosis?: No Procedures Date of Service Date of Service: 07/13/22
--- NOTE | 2022-07-13 14:25 | HO.PM.IMPN ---
Subjective Subjective Date of Service: 07/13/22 Interval History: tolerating solids, had rapid herat rate overnight Physical Exam Vital Signs: Vital Signs: Last Vital Signs Temp 97.5 F 07/13/22 11:00 Pulse 51 07/13/22 11:00 Resp 18 07/13/22 11:00 BP 140/80 H 07/13/22 11:00 Pulse Ox 96 07/13/22 11:00 O2 Del Method Room Air 07/13/22 11:00 BMI result Body Mass Index 31.3 General: AO X 3, no acute distress Resp: CTA bilateral, no accessory muscles used CVS: S1,S2,RRR GI: soft, non tender, non distended Neuro: motor grossly intact, alert Psych: appropriate affect, appropriate insight Objective Data Active Medications Acetaminophen (Acetaminophen 325 Mg Tablet) 650 mg PO Q6H PRN PRN Reason: Pain, Mild (Pain Scale 1-3) Dronedarone (Dronedarone Hcl 400 Mg Tablet) 400 mg PO BID [facility] Enoxaparin Sodium (Enoxaparin Sodium 40 Mg/0.4 Ml Syringe) 40 mg SUBCUT Q24H [facility] Last Admin: 07/12/22 21:00 Dose: 40 mg Documented By: LUCAS Fluticasone/Vilanterol (Fluticasone/Vilanterol 200/25 Blst.W.Dev) 1 puff INHALE RDAILY [facility] Last Admin: 07/13/22 07:48 Dose: 1 puff Documented By: ANTONELLA Piperacillin Sod/Tazobactam (Sod 3.375 gm/ Sodium Chloride) 50 mls @ 100 mls/hr IV Q6H [facility] Last Infusion: 07/13/22 09:09 Dose: 0 mls/hr Documented By: KENNEDY Lactated Ringer's (Lr) 1,000 mls @ 80 mls/hr IVCONT .[id number] [facility] Last Admin: 07/13/22 10:49 Dose: 80 mls/hr Documented By: KENNEDY Omeprazole (Omeprazole 40 Mg Capsule.) 40 mg PO DAILY@0630 [facility] Last Admin: 07/13/22 10:48 Dose: 40 mg Documented By: KENNEDY Pharmacy Consult (Consult Rx Perform Med Rec) 1 each MISCELLANE ONCE PRN PRN Reason: Consult order Sodium Chloride (0.9 % Sodium Chloride Flush 3 Ml Syringe) 3 ml IVFLUSH QSHIFT [facility] Last Admin: 07/13/22 08:18 Dose: 3 ml Documented By: KENNEDY Labs 07/13/22 07:15 07/13/22 07:15 Labs: Laboratory Results - last 24 hr 07/13/22 07/13/22 07:15 07:15 MCV 89.2 MCH 31.5 MCHC 35.3 RDW 12.5 Plt Count 269 MPV 10.2 Absolute Nucleated RBC 0.000 Nucleated RBC % (auto) 0.0 Anion Gap 12 Estim Creat Clear Calc 86.3 Estimated GFR > 60 Random Glucose 107 Calcium 8.5 Microbiology Microbiology Results: Microbiology 07/11/22 19:37 Blood Culture - Preliminary Blood - Venous Gram positive cocci 07/11/22 19:38 Blood Culture - Preliminary Blood - Venous No growth after 24 hours. Assessment and Plan (1) Atrial fibrillation with rapid ventricular response: Status: Acute (2) Diverticulitis: Status: Acute Plan 66M with history of paroxysmal atrial fibrillation not on anticoagulation, sarcoidosis, and COPD admitted for acute diverticulitis with PO intolerance and atrial fibrillation with RVR. Acute diverticulitis CT showing mild sigmoid diverticulitis. No abscess or perforation GI panel and CDiff screen pending Clear liquid diet, advance as tolerated Ondansetron prn Continue gentle IVF IV zosyn 3.375g q6h (initiated 07/11) paroxysmal atrial fibrillation with RVR started multaq TSH normal, mag normal [id number] VASc score 1, turning 67 in few months hodling off on AC Elevated trop trended flat EKG without ischemic changes ?underlying CAD, outpatient follow up with cardiology COPD no acute exacerbation DVT prophylaxis Lovenox Full code reason for continued hospitalization:rate/rhthem control Time Spent With Patient Time: Total time managing care of this patient today ____ minutes. Quality Stroke Does the patient have a stroke diagnosis?: No VTE Prior VTE?: No VTE Risk Level:: Medical - moderate - high VTE Device Contraindication: Treatment Not Indicated VTE Drug Contraindication: N/A - Med Ordered
[2022-07-13 15:21] LABS: CDiff Gene PCR POSITIVE (Negative)
[2022-07-13 16:54] LABS: CDIFF Internal ctrl Dots and bkg OK (V); CDiff Toxin Negative (Negative)
[2022-07-13] MEDS: Dronedarone HCl 400 MG TABLET PO (18:28)
[2022-07-13] MEDS: Enoxaparin Sodium 40 MG/0.4 ML SYRINGE SUBCUT (20:36)
[2022-07-13] MEDS: dilTIAZem HCL 50 MG/10 ML VIAL 15 MG IVPUSH (21:28)
[2022-07-14] VITALS (12 sets, daily range): BP systolic 105–126; BP diastolic 70–83; PULSE 55–160; RESP 18–20; TEMP 36.1–37.6; O2SAT 92–98
--- NOTE | 2022-07-14 00:03 | PC.NURSE ---
Hospitilist notifed at 2114 of pt heart rate up to 140-150s in A-Fib, cardizem 15mg given IVP, heart rate remained elevated 140-150's in A-Flutter, at 2318 Cardizem drip started at 10mg/hr, @0000 pt converted romario to SR heart rate noted at 64.
[2022-07-14] MEDS: Piperacillin Sodium/Tazobactam 3.375 GM in 0.9 % Sodium Chloride 50 ML IV ×4 (01:55→21:03)
--- NOTE | 2022-07-14 03:52 | PC.NURSE ---
Cardizem drip restarted at 10mg/hr, heart rate 130-150's.
--- NOTE | 2022-07-14 05:12 | PC.NURSE ---
Cardizem drip restarted at 10mg/hr for heart rate 140-150's @ 0345, stopped at 0503 for cory cardio at 56, @0505 heart noted in 120's - 130s, will cont to monitor, and restart drip if heart rate doesn't drop.
[2022-07-14] MEDS: Omeprazole 40 MG CAPSULE.DR PO (05:36)
--- NOTE | 2022-07-14 05:51 | PC.NURSE ---
Cardizem drip restarted, heart rate up to 160
[2022-07-14 07:00] LABS: Hematocrit 41.9 % (42.0-52.0); Hemoglobin 14.8 g/dl (14.0-18.0); Mean Corpuscular HGB Conc 35.3 g/dl (31.0-36.0); Mean Corpuscular Hemoglobin 31.8 pg (27.0-33.0); Mean Corpuscular Volume 90.1 fL (80.0-98.0); Mean Platelet Volume 10.4 fL (9.4-12.4); Platelet Count 237 X10*3/uL (160-400); Red Blood Count 4.65 X10*6/uL (4.60-5.80); Red Cell Distribution Width 12.6 % (11.0-16.0); White Blood Count 9.2 X10*3/uL (4.8-10.8)
[2022-07-14 07:11] LABS: Anion Gap 11 (12-20); Blood Urea Nitrogen 17 mg/dL (9-16); Calcium 8.6 mg/dL (8.4-10.2); Carbon Dioxide 24 mmol/L (22-29); Chloride 109 mmol/L (96-108); Creatinine Clr Calc Pharmacy 73.3; Estimated Glomerular Filt Rate > 60; Glucose Fasting 104 mg/dL (60-99); Potassium 3.6 mmol/L (3.3-5.1); Sodium 140 mmol/L (135-145)
[2022-07-14] MEDS: Fluticasone/Vilanterol 200/25 BLST.W.DEV 1 PUFF INHALE (07:54)
--- NOTE | 2022-07-14 08:58 | PM.PNCARD ---
Subjective Subjective Date of Service: 07/14/22 Interval history: Seen examined at bedside. Has been in and out of atrial fibrillation. Currently in AFib with RVR and on diltiazem drip. Denying any significant symptoms. Abdominal complaints are minimal and he is able to tolerate p.o.. Physical Exam Vital Signs: Last Vital Signs Temp 97 F 07/14/22 03:48 Pulse 55 07/14/22 07:55 Resp 18 07/14/22 07:55 BP 123/82 07/14/22 03:48 Pulse Ox 92 07/14/22 03:48 O2 Del Method Room Air 07/14/22 03:48 BMI result Body Mass Index 31.3 GENERAL APPEARANCE: in no acute distress, pleasant. NECK: no carotid bruit, no jugular venous distention. SKIN: no suspicious lesions, warm and dry. HEART: no murmurs, irregular rate and rhythm. Tachycardic. LUNGS: clear to auscultation bilaterally. ABDOMEN: soft. EXTREMITIES: no edema. PERIPHERAL PULSES: equal. NEUROLOGIC: No gross deficits, AAO X 3 Objective Labs and Meds 07/14/22 06:21 07/14/22 06:21 Lab results: Laboratory Results - last 24 hr 07/13/22 07/14/22 07/14/22 11:50 06:21 06:21 WBC 9.2 RBC 4.65 Hgb 14.8 Hct 41.9 L MCV 90.1 MCH 31.8 MCHC 35.3 RDW 12.6 Plt Count 237 MPV 10.4 Absolute Nucleated RBC 0.000 Nucleated RBC % (auto) 0.0 Sodium 140 Potassium 3.6 Chloride 109 H Carbon Dioxide 24 Anion Gap 11 L BUN 17 H Creatinine 1.20 Estim Creat Clear Calc 73.3 Estimated GFR > 60 Fasting Glucose 104 H Calcium 8.6 C. difficile Tox B Gene POSITIVE A* C. difficile Toxin A&B Negative C. difficile Interpret SEE NOTE Progress Note: A&P Assessment and plan (1) Atrial fibrillation with rapid ventricular response: Status: Acute Plan [age] gentleman presenting with diverticulitis and having paroxysmal episodes of AFib with RVR. He was started on Multaq last night and took 1 dose overnight. He has been in and out of atrial fibrillation of overnight and this morning again went into AFib with RVR. He is currently on Cardizem drip. Continue Cardizem daily reverted to sinus rhythm. Continue Multaq 100 mg twice a day. If he has prolonged episodes of atrial fibrillation lasting more than 6 hours then I think we may have to discuss about anticoagulation. His blood pressure readings visit has been elevated which can be due to abdominal pain but can also be undiagnosed hypertension which gives him 1 point for the chads Vasc score. He is also turning 67 in couple of months. In that scenario leaving him on anticoagulation and considering cardioversion could be a possibility. I think he is going to convert to sinus rhythm soon. Thank you for allowing me to participate in the care of your patient. Please feel free to contact me if you have any questions. Time Spent With Patient Time: Total time managing care of this patient today ____ minutes. Progress Note: Quality Stroke Does the patient have a stroke diagnosis?: No Procedures Date of Service Date of Service: 07/14/22
[2022-07-14] MEDS: Dronedarone HCl 400 MG TABLET PO ×2 (09:19→21:02)
[2022-07-14] MEDS: 0.9 % Sodium Chloride Flush 3 ML SYRINGE IVFLUSH ×3 (09:19→21:03)
[2022-07-14 09:58] LABS: Adenovirus F 40/41 Not Detected (Not Detect.); Astrovirus Not Detected (Not Detect.); Campylobacter Not Detected (Not Detect.); Cryptosporidium Not Detected (Not Detect.); Cyclospora cayetanensis Not Detected (Not Detect.); E. coli EAEC Not Detected (Not Detect.); E. coli EPEC Detected (Not Detect.); E. coli ETEC Not Detected (Not Detect.); E. coli STEC Not Detected (Not Detect.); Entamoeba histolytica Not Detected (Not Detect.); Giardia lamblia Not Detected (Not Detect.); Norovirus GI/GII Not Detected (Not Detect.); Plesiomonas shigelloides Not Detected (Not Detect.); Rotavirus A Not Detected (Not Detect.); Salmonella Not Detected (Not Detect.); Sapovirus Not Detected (Not Detect.); Shigella sp./EIEC Not Detected (Not Detect.); Vibrio Not Detected (Not Detect.); Vibrio Cholerae Not Detected (Not Detect.); Yersinia enterocolitica Not Detected (Not Detect.)
--- NOTE | 2022-07-14 10:19 | HO.PM.IMPN ---
Subjective Subjective Date of Service: 07/14/22 Interval History: back in rapid afib Physical Exam Vital Signs: Vital Signs: Last Vital Signs Temp 97 F 07/14/22 03:48 Pulse 55 07/14/22 07:55 Resp 18 07/14/22 07:55 BP 123/82 07/14/22 03:48 Pulse Ox 92 07/14/22 03:48 O2 Del Method Room Air 07/14/22 03:48 BMI result Body Mass Index 31.3 GENERAL APPEARANCE: in no acute distress, pleasant. NECK: no carotid bruit, no jugular venous distention. SKIN: no suspicious lesions, warm and dry. HEART: no murmurs, irregular rate and rhythm. Tachycardic. LUNGS: clear to auscultation bilaterally. ABDOMEN: soft. EXTREMITIES: no edema. PERIPHERAL PULSES: equal. NEUROLOGIC: No gross deficits, AAO X 3 Objective Data Active Medications Acetaminophen (Acetaminophen 325 Mg Tablet) 650 mg PO Q6H PRN PRN Reason: Pain, Mild (Pain Scale 1-3) Dronedarone (Dronedarone Hcl 400 Mg Tablet) 400 mg PO BID [facility] Last Admin: 07/14/22 09:19 Dose: 400 mg Documented By: TOBIAS Enoxaparin Sodium (Enoxaparin Sodium 40 Mg/0.4 Ml Syringe) 40 mg SUBCUT Q24H [facility] Last Admin: 07/13/22 20:36 Dose: 40 mg Documented By: LUCAS Fluticasone/Vilanterol (Fluticasone/Vilanterol 200/25 Blst.W.Dev) 1 puff INHALE RDAILY [facility] Last Admin: 07/14/22 07:54 Dose: 1 puff Documented By: ANTONELLA Piperacillin Sod/Tazobactam (Sod 3.375 gm/ Sodium Chloride) 50 mls @ 100 mls/hr IV Q6H [facility] Last Admin: 07/14/22 09:18 Dose: 100 mls/hr Documented By: TOBIAS Diltiazem HCl 125 mg/ Sodium (Chloride) 125 mls @ 0 mls/hr IVCONT .Q0M [facility]; Protocol Last Titration: 07/14/22 06:35 Dose: 15 mg/hr, 15 mls/hr Documented By: LUCAS Omeprazole (Omeprazole 40 Mg Capsule.Dr) 40 mg PO DAILY@0630 [facility] Last Admin: 07/14/22 05:36 Dose: 40 mg Documented By: LUCAS Pharmacy Consult (Consult Rx Perform Med Rec) 1 each MISCELLANE ONCE PRN PRN Reason: Consult order Sodium Chloride (0.9 % Sodium Chloride Flush 3 Ml Syringe) 3 ml IVFLUSH QSHIFT [facility] Last Admin: 07/14/22 09:19 Dose: 3 ml Documented By: TOBIAS Labs 07/14/22 06:21 07/14/22 06:21 Labs: Laboratory Results - last 24 hr 07/13/22 07/13/22 07/14/22 11:50 11:50 06:21 MCV 90.1 MCH 31.8 MCHC 35.3 RDW 12.6 Plt Count 237 MPV 10.4 Absolute Nucleated RBC 0.000 Nucleated RBC % (auto) 0.0 Anion Gap Estim Creat Clear Calc Estimated GFR Fasting Glucose Calcium Stl C. cayetanensis PCR Not Detected Stool Rotavirus A PCR Not Detected Stl Adenov F 40/41 PCR Not Detected Stool Astrovirus (PCR) Not Detected Stool Campylobacter PCR Not Detected Stool Cryptosporidium PCR Not Detected Stl Sh Tox Pr E STEC PCR Not Detected Stool E coli O157 PCR Not applicable Stl Enterotoxigenic E PCR Not Detected Stool EPEC (PCR) Detected A Stool EAEC (PCR) Not Detected Stl E. histolytica PCR Not Detected Stool Giardia Lamblia PCR Not Detected Stl P. shigelloides PCR Not Detected Stool Salmonella PCR Not Detected Stool Sapovirus (PCR) Not Detected Stl Shigella/EIEC PCR Not Detected St Y.enterocolitica PCR Not Detected Stool Vibrio (PCR) Not Detected Stl Vibrio cholerae PCR Not Detected Stl Norovirus GI/GII PCR Not Detected C. difficile Tox B Gene POSITIVE A* C. difficile Toxin A&B Negative C. difficile Interpret SEE NOTE 07/14/22 06:21 MCV MCH MCHC RDW Plt Count MPV Absolute Nucleated RBC Nucleated RBC % (auto) Anion Gap 11 L Estim Creat Clear Calc 73.3 Estimated GFR > 60 Fasting Glucose 104 H Calcium 8.6 Stl C. cayetanensis PCR Stool Rotavirus A PCR Stl Adenov F 40/41 PCR Stool Astrovirus (PCR) Stool Campylobacter PCR Stool Cryptosporidium PCR Stl Sh Tox Pr E STEC PCR Stool E coli O157 PCR Stl Enterotoxigenic E PCR Stool EPEC (PCR) Stool EAEC (PCR) Stl E. histolytica PCR Stool Giardia Lamblia PCR Stl P. shigelloides PCR Stool Salmonella PCR Stool Sapovirus (PCR) Stl Shigella/EIEC PCR St Y.enterocolitica PCR Stool Vibrio (PCR) Stl Vibrio cholerae PCR Stl Norovirus GI/GII PCR C. difficile Tox B Gene C. difficile Toxin A&B C. difficile Interpret Microbiology Microbiology Results: Microbiology 07/11/22 19:37 Blood Culture - Final Blood - Venous Coag negative Staphylococcus 07/11/22 19:38 Blood Culture - Preliminary Blood - Venous No growth after 48 hours. Assessment and Plan (1) Atrial fibrillation with rapid ventricular response: Status: Acute (2) Diverticulitis: Status: Acute Plan 66M with history of paroxysmal atrial fibrillation not on anticoagulation, sarcoidosis, and COPD admitted for acute diverticulitis with PO intolerance and atrial fibrillation with RVR. Acute diverticulitis CT showing mild sigmoid diverticulitis. No abscess or perforation cdif colonizer only IV zosyn 3.375g q6h (initiated 07/11) paroxysmal atrial fibrillation with RVR started multaq TSH normal, mag normal [id number]- VASc score 1, turning 67 in few months hodling off on AC Elevated trop trended flat EKG without ischemic changes ?underlying CAD, outpatient follow up with cardiology COPD no acute exacerbation DVT prophylaxis Lovenox Full code reason for continued hospitalization:rate/rhthem control Time Spent With Patient Time: Total time managing care of this patient today ____ minutes. Quality Stroke Does the patient have a stroke diagnosis?: No VTE Prior VTE?: No VTE Risk Level:: Medical - moderate - high VTE Device Contraindication: Treatment Not Indicated VTE Drug Contraindication: N/A - Med Ordered
[2022-07-14] MEDS: dilTIAZem HCL 125 MG in 0.9 % Sodium Chloride 100 ML 15 MG IVCONT ×2 (10:59→19:15)
[2022-07-14] MEDS: Enoxaparin Sodium 40 MG/0.4 ML SYRINGE SUBCUT (21:02)
[2022-07-15] VITALS (7 sets, daily range): BP systolic 113–137; BP diastolic 69–79; PULSE 62–96; RESP 16–20; TEMP 36.4–37.2; O2SAT 95–96
[2022-07-15] MEDS: Piperacillin Sodium/Tazobactam 3.375 GM in 0.9 % Sodium Chloride 50 ML IV ×4 (02:15→19:33)
[2022-07-15] MEDS: dilTIAZem HCL 125 MG in 0.9 % Sodium Chloride 100 ML 15 MG IVCONT ×2 (02:15→10:40)
[2022-07-15 05:11] LABS: Hematocrit 40.4 % (42.0-52.0); Hemoglobin 14.3 g/dl (14.0-18.0); Mean Corpuscular HGB Conc 35.4 g/dl (31.0-36.0); Mean Corpuscular Hemoglobin 31.7 pg (27.0-33.0); Mean Corpuscular Volume 89.6 fL (80.0-98.0); Mean Platelet Volume 9.9 fL (9.4-12.4); Platelet Count 252 X10*3/uL (160-400); Red Blood Count 4.51 X10*6/uL (4.60-5.80); Red Cell Distribution Width 12.7 % (11.0-16.0); White Blood Count 10.1 X10*3/uL (4.8-10.8)
[2022-07-15 05:28] LABS: Anion Gap 10 (12-20); Blood Urea Nitrogen 18 mg/dL (9-16); Calcium 8.3 mg/dL (8.4-10.2); Carbon Dioxide 24 mmol/L (22-29); Chloride 108 mmol/L (96-108); Creatinine Clr Calc Pharmacy 71.5; Estimated Glomerular Filt Rate 59; Glucose Fasting 109 mg/dL (60-99); Potassium 3.4 mmol/L (3.3-5.1); Sodium 139 mmol/L (135-145)
[2022-07-15] MEDS: Omeprazole 40 MG CAPSULE.DR PO (06:12)
[2022-07-15] MEDS: Fluticasone/Vilanterol 200/25 BLST.W.DEV 1 PUFF INHALE (07:24)
[2022-07-15] MEDS: Dronedarone HCl 400 MG TABLET PO ×2 (08:20→20:24)
[2022-07-15] MEDS: 0.9 % Sodium Chloride Flush 3 ML SYRINGE IVFLUSH ×2 (08:21→15:28)
--- NOTE | 2022-07-15 09:20 | HO.PM.IMPN ---
Subjective Subjective Date of Service: 07/15/22 Interval History: in afib, some symptoms Physical Exam Vital Signs: Vital Signs: Last Vital Signs Temp 97.5 F 07/15/22 08:00 Pulse 96 07/15/22 08:00 Resp 20 07/15/22 08:00 BP 116/76 07/15/22 08:00 Pulse Ox 95 07/15/22 08:00 O2 Del Method Room Air 07/15/22 08:00 BMI result Body Mass Index 31.3 General: AO X 3, no acute distress Resp: CTA bilateral, no accessory muscles used CVS: S1,S2,irregular GI: soft, non tender, non distended Neuro: motor grossly intact, alert Psych: appropriate affect, appropriate insight Objective Data Active Medications Acetaminophen (Acetaminophen 325 Mg Tablet) 650 mg PO Q6H PRN PRN Reason: Pain, Mild (Pain Scale 1-3) Dronedarone (Dronedarone Hcl 400 Mg Tablet) 400 mg PO BID [facility], [facility] Last Admin: 07/15/22 08:20 Dose: 400 mg Documented By: TOBIAS Enoxaparin Sodium (Enoxaparin Sodium 40 Mg/0.4 Ml Syringe) 40 mg SUBCUT Q24H [facility], [facility] Last Admin: 07/14/22 21:02 Dose: 40 mg Documented By: SUKHJINDER-RIVMITCHELL Fluticasone/Vilanterol (Fluticasone/Vilanterol 200/25 Blst.W.Dev) 1 puff INHALE RDAILY [facility] Last Admin: 07/15/22 07:24 Dose: 1 puff Documented By: VALERY Piperacillin Sod/Tazobactam (Sod 3.375 gm/ Sodium Chloride) 50 mls @ 100 mls/hr IV Q6H [facility] Last Infusion: 07/15/22 08:53 Dose: 0 mls/hr Documented By: TOBIAS Diltiazem HCl 125 mg/ Sodium (Chloride) 125 mls @ 0 mls/hr IVCONT .Q0M [facility]; Protocol Last Admin: 07/15/22 02:15 Dose: 15 mg/hr, 15 mls/hr Documented By: NANCY Omeprazole (Omeprazole 40 Mg Capsule.) 40 mg PO DAILY@0630 [facility] Last Admin: 07/15/22 06:12 Dose: 40 mg Documented By: NANCY Pharmacy Consult (Consult Rx Perform Med Rec) 1 each MISCELLANE ONCE PRN PRN Reason: Consult order Potassium Chloride (Potassium Chloride Er 20 Meq Tab.Er.Prt) 40 meq PO ONCE ONE Stop: 07/15/22 09:20 Sodium Chloride (0.9 % Sodium Chloride Flush 3 Ml Syringe) 3 ml IVFLUSH QSHIFT [facility] Last Admin: 07/15/22 08:21 Dose: 3 ml Documented By: TOBIAS Labs 07/15/22 04:55 07/15/22 04:55 Labs: Laboratory Results - last 24 hr 07/13/22 07/15/22 07/15/22 11:50 04:55 04:55 MCV 89.6 MCH 31.7 MCHC 35.4 RDW 12.7 Plt Count 252 MPV 9.9 Absolute Nucleated RBC 0.000 Nucleated RBC % (auto) 0.0 Anion Gap 10 L Estim Creat Clear Calc 71.5 Estimated GFR 59 Fasting Glucose 109 H Calcium 8.3 L Stl C. cayetanensis PCR Not Detected Stool Rotavirus A PCR Not Detected Stl Adenov F 40/41 PCR Not Detected Stool Astrovirus (PCR) Not Detected Stool Campylobacter PCR Not Detected Stool Cryptosporidium PCR Not Detected Stl Sh Tox Pr E STEC PCR Not Detected Stool E coli O157 PCR Not applicable Stl Enterotoxigenic E PCR Not Detected Stool EPEC (PCR) Detected A Stool EAEC (PCR) Not Detected Stl E. histolytica PCR Not Detected Stool Giardia Lamblia PCR Not Detected Stl P. shigelloides PCR Not Detected Stool Salmonella PCR Not Detected Stool Sapovirus (PCR) Not Detected Stl Shigella/EIEC PCR Not Detected St Y.enterocolitica PCR Not Detected Stool Vibrio (PCR) Not Detected Stl Vibrio cholerae PCR Not Detected Stl Norovirus GI/GII PCR Not Detected Microbiology Microbiology Results: Microbiology 07/11/22 19:37 Blood Culture - Final Blood - Venous Coag negative Staphylococcus Assessment and Plan (1) Atrial fibrillation with rapid ventricular response: Status: Acute (2) Diverticulitis: Status: Acute Plan 66M with history of paroxysmal atrial fibrillation not on anticoagulation, sarcoidosis, and COPD admitted for acute diverticulitis with PO intolerance and atrial fibrillation with RVR. Acute diverticulitis CT showing mild sigmoid diverticulitis. No abscess or perforation cdif colonizer only IV zosyn 3.375g q6h (initiated 07/11) paroxysmal atrial fibrillation with RVR started multaq TSH normal, mag normal [id number]- VASc score 1, turning 67 in few months hodling off on AC for now still going in and out of rapid afib Elevated trop trended flat EKG without ischemic changes ?underlying CAD, outpatient follow up with cardiology COPD no acute exacerbation DVT prophylaxis Lovenox Full code reason for continued hospitalization:rate/rhythm control Time Spent With Patient Time: Total time managing care of this patient today ____ minutes. Quality Stroke Does the patient have a stroke diagnosis?: No VTE Prior VTE?: No VTE Risk Level:: Medical - moderate - high VTE Device Contraindication: Treatment Not Indicated VTE Drug Contraindication: N/A - Med Ordered
--- NOTE | 2022-07-15 10:23 | MHC.CM.PN ---
Per ROUNDS discussion, Patient is still in rapid a-fib and is not medically cleared for dc;home is the goal and CM will continue to follow.
[2022-07-15] MEDS: Potassium Chloride ER 20 MEQ TAB.ER.PRT 40 MEQ PO (10:40)
[2022-07-15] MEDS: dilTIAZem HCL CD 180 MG CAP.ER.24H PO (15:28)
[2022-07-15] MEDS: Enoxaparin Sodium 40 MG/0.4 ML SYRINGE SUBCUT (20:23)
[2022-07-16] MEDS: Piperacillin Sodium/Tazobactam 3.375 GM in 0.9 % Sodium Chloride 50 ML IV ×2 (01:06→08:47)
[2022-07-16] MEDS: 0.9 % Sodium Chloride Flush 3 ML SYRINGE IVFLUSH ×2 (01:06→09:03)
[2022-07-16 03:45] VITALS: BP 110/65; PULSE 62; RESP 20; TEMP 36.5; O2SAT 94
[2022-07-16] MEDS: Omeprazole 40 MG CAPSULE.DR PO (05:53)
[2022-07-16 06:40] LABS: Hematocrit 37.4 % (42.0-52.0); Hemoglobin 12.9 g/dl (14.0-18.0); Mean Corpuscular HGB Conc 34.5 g/dl (31.0-36.0); Mean Corpuscular Hemoglobin 31.9 pg (27.0-33.0); Mean Corpuscular Volume 92.6 fL (80.0-98.0); Platelet Count 228 X10*3/uL (160-400); Red Blood Count 4.04 X10*6/uL (4.60-5.80); Red Cell Distribution Width 12.9 % (11.0-16.0); White Blood Count 7.6 X10*3/uL (4.8-10.8)
[2022-07-16 06:55] LABS: Anion Gap 9 (12-20); Blood Urea Nitrogen 19 mg/dL (9-16); Calcium 8.4 mg/dL (8.4-10.2); Carbon Dioxide 27 mmol/L (22-29); Chloride 108 mmol/L (96-108); Estimated Glomerular Filt Rate 47; Glucose Fasting 100 mg/dL (60-99); Potassium 4.1 mmol/L (3.3-5.1); Sodium 140 mmol/L (135-145)
--- NOTE | 2022-07-16 07:08 | PM.PNCARD ---
Subjective Subjective Date of Service: 07/15/22 Interval history: Patient was seen examined at bedside on 07/15/2022. Blood could not be return because of some technical issues with [employer]. He was in and out of atrial fibrillation. He has not felt any significant symptoms with it. At the time of interview he was back in sinus rhythm. Physical Exam Vital Signs: Last Vital Signs Temp 97.7 F 07/16/22 03:45 Pulse 62 07/16/22 03:45 Resp 20 07/16/22 03:45 BP 110/65 07/16/22 03:45 Pulse Ox 94 07/16/22 03:45 O2 Del Method Room Air 07/16/22 03:45 BMI result Body Mass Index 31.3 GENERAL APPEARANCE: in no acute distress, pleasant. NECK: no carotid bruit, no jugular venous distention. SKIN: no suspicious lesions, warm and dry. HEART: no murmurs, regular rate and rhythm. LUNGS: clear to auscultation bilaterally. ABDOMEN: soft. EXTREMITIES: no edema. PERIPHERAL PULSES: equal. NEUROLOGIC: No gross deficits, AAO X 3 Objective Labs and Meds 07/16/22 06:25 07/16/22 06:25 Lab results: Laboratory Results - last 24 hr 07/16/22 07/16/22 06:25 06:25 WBC 7.6 RBC 4.04 L Hgb 12.9 L Hct 37.4 L MCV 92.6 MCH 31.9 MCHC 34.5 RDW 12.9 Plt Count 228 MPV 10.0 Absolute Nucleated RBC 0.000 Nucleated RBC % (auto) 0.0 Sodium 140 Potassium 4.1 D Chloride 108 Carbon Dioxide 27 Anion Gap 9 L BUN 19 H Creatinine 1.49 H Estim Creat Clear Calc 59.0 Estimated GFR 47 Fasting Glucose 100 H Calcium 8.4 Magnesium 2.0 Progress Note: A&P Assessment and plan (1) Atrial fibrillation with rapid ventricular response: Status: Acute Plan Pleasant 66 gentleman with AFib with RVR in the setting of diverticulitis. He previously had AFib with RVR in the past 2. He has paroxysmal atrial fibrillation currently and has been in and out of atrial fibrillation. We started him on Multaq 400 mg twice a day. Continue that for now. I think Cardizem drip can be stopped as he is back in sinus rhythm any can be changed to Cardizem CD 1 80 mg once a day. Can be discharged home on this regimen. He will find a cereal maker in [facility] from where he is originally from. Signing off. Time Spent With Patient Time: Total time managing care of this patient today ____ minutes. Progress Note: Quality Stroke Does the patient have a stroke diagnosis?: No Procedures Date of Service Date of Service: 07/15/22
[2022-07-16 07:42] VITALS: BP 140/81; PULSE 66; RESP 20; TEMP 36.8; O2SAT 95
[2022-07-16] MEDS: Fluticasone/Vilanterol 200/25 BLST.W.DEV 1 PUFF INHALE (07:50)
[2022-07-16 07:52] VITALS: PULSE 68; RESP 16; O2SAT 96
[2022-07-16] MEDS: dilTIAZem HCL CD 180 MG CAP.ER.24H PO (08:46)
[2022-07-16] MEDS: Dronedarone HCl 400 MG TABLET PO (08:47)
--- NOTE | 2022-07-16 09:14 | PM.DS ---
DS: Providers Provider Date of Service: 07/16/22 Date of admission: 07/11/22 20:16 Primary care physician: Jassi Larson MD Consults: 07/11/22 20:21 Consult to Cardiology Routine Consulting Provider: [facility] [place] [place] Cardiovascular Services Reason for consultation: afib rvr Has provider been notified: Yes DS: Diagnosis Discharge Diagnosis (1) Atrial fibrillation with rapid ventricular response: Status: Acute DS: Summary Hospital Course Hospital Course: from initial hpi: 66-year-old male with history of atrial fibrillation not on anticoagulation, sarcoidosis, and COPD earlier today with his , for evaluation of fatigue, malaise, nausea, vomiting, diarrhea, and chest tightness ongoing for 3 days but progressively worsening.? On arrival, reports chest pain was radiating to the back but states this has resolved.? There is occasionally shortness of breath and lightheadedness.? He states symptoms started the morning after consuming Tanvir food.? Since then, he has been vomiting bile with copious diarrhea and unable to tolerate food and minimal fluid intake.? He denies any hematemesis, hematochezia, melena.? There is generalized abdominal discomfort but no focal pain.? States no one at home has similar symptoms.? Denies any fevers, chills. On arrival, vital stable though patient did develop significant tachycardia with heart rate 152, found to be in rapid AFib on EKG.? He is afebrile, no hypotension.? Has been given 20 mg IV push Cardizem followed by 10 mg IV push Cardizem.? Heart rate throughout exam ranging 120-160, but NSR restored with HR 60 upon completion of exam without additional therapeutic intervention.? There is leukocytosis of 15.1.? Creatinine 1.24, BUN 27.? Baseline renal function unknown.? Electrolyte levels normal.? Magnesium level within normal limits, TSH pending.? Initial troponin 13.4, repeat 21.2.? BNP 369.? CT abdomen/pelvis showing diverticulosis with wall thickening of the sigmoid colon questionable for mild sigmoid diverticulitis.? EKG showing AFib with RVR and PVCs versus aberrant Ramona conducted complexes, rate 152, no ST/T-wave abnormality. Treated with IV zosyn and IVF in ED. hospital course: patient was admitted for acute sigmoid diverticulitis, was treated with IV zosyn with resolution, noted to have cdif colinization but not active infection. course complicated by paroxysmal afib with rvr. was started on multaq and diltiazem, patient still going in and out of afib on discharge, but only mildly symptomatic. plan to follow up with cardiology in [place]. his chadsvasc is 1, therefore, will just use baby aspirin for now. noted to have mildly elevated, flat troponins, no evidence of ACS, but may have underlying CAD which should be investigated as outpatient. for copd was continued on inhalers. patient is feeling better and will be discharged home. Time Spent with Patient Time attestation: Total time managing care of this patient today ____ minutes. Discharge coordination time: Greater than 30 minutes Quality: Safe Use of Opioids Does Pt have an Active Cancer Diagnosis on the Problem List?: No Quality: Stroke Does the patient have a stroke diagnosis?: No Physical Exam Vital Signs: Vital Signs: Last Vital Signs Temp 98.3 F 07/16/22 07:42 Pulse 68 07/16/22 07:52 Resp 16 07/16/22 07:52 BP 140/81 H 07/16/22 07:42 Pulse Ox 95 07/16/22 07:42 O2 Del Method Room Air 07/16/22 07:42 BMI result Body Mass Index 31.3 GENERAL APPEARANCE: in no acute distress, pleasant. NECK: no carotid bruit, no jugular venous distention. SKIN: no suspicious lesions, warm and dry. HEART: no murmurs, regular rate and rhythm. LUNGS: clear to auscultation bilaterally. ABDOMEN: soft. EXTREMITIES: no edema. PERIPHERAL PULSES: equal. NEUROLOGIC: No gross deficits, AAO X 3 DS: Data Data Completed and Pending Labs on day of discharge: Laboratory Results - last 24 hr 07/16/22 07/16/22 06:25 06:25 WBC 7.6 RBC 4.04 L Hgb 12.9 L Hct 37.4 L MCV 92.6 MCH 31.9 MCHC 34.5 RDW 12.9 Plt Count 228 MPV 10.0 Absolute Nucleated RBC 0.000 Nucleated RBC % (auto) 0.0 Sodium 140 Potassium 4.1 D Chloride 108 Carbon Dioxide 27 Anion Gap 9 L BUN 19 H Creatinine 1.49 H Estim Creat Clear Calc 59.0 Estimated GFR 47 Fasting Glucose 100 H Calcium 8.4 Magnesium 2.0 Preliminary micro results at discharge 07/11/22 19:38 Blood Culture - Preliminary Blood - Venous No growth after 48 hours. Discharge Plan Discharge Anticipated Discharge Date/Time: 07/16/22 09:10 Patient Disposition: Home, Self-Care Discharge Diagnosis: afib, diverticulitis Referrals: Jassi Larson MD [Primary Care Provider] - 1 Week Discharge Medications: New diltiazem HCl [Cardizem CD] 180 mg Capsule,Extended Release 24hr 180 mg PO DAILY Qty: 30 0RF Protocol: Hold for SBP/HR < HOLD for SBP < : 90 HOLD for HR < : 60 omeprazole 40 mg Capsule,Delayed Release(Dr/Ec) 40 mg PO DAILY@0630 Qty: 30 0RF Multaq 400 mg Tablet 400 mg PO BID Qty: 60 0RF aspirin [Enteric Coated Aspirin] 81 mg tablet,delayed release (DR/EC) 81 mg PO DAILY Qty: 30 0RF Continued ibuprofen 600 mg tablet 600 mg PO Q6H PRN (Reason: pain) budesonide-formoterol [Symbicort] 160-4.5 mcg/actuation HFA aerosol inhaler 2 puff INHALATION DAILY Discharge Orders: Discharge Order (Routine); Ordered 07/16/22 Ordered By: Bravo Johnston Diet: Advance to usual diet Activity on Discharge: As tolerated Stand Alone Forms: Patient Portal Discharge page Care Plan Goals: manage afib Health Concerns: afib Plan of Treatment: new meds as prescribed, follow up with doctors in [place], treatment for NICOLETTE Assessment: see above
--- NOTE | 2022-07-16 09:41 | MHC.CM.PN ---
order for home, self care. CM acknowledged.
== END 2022-07-16 14:00 | disposition home or self-care (01) | DRG 244 ==
LOC: HO.ED 20:20 → HO.EDOVER 20:35 → HO.IMC 07-12 01:30
PROVIDERS: Physician Assistant; Student in an Organized Health Care Education/Training Program; Admitting Provider Physician Assistant; Emergency Provider Emergency Medicine Emergency Medical Services; PCP Family Medicine; Visit Provider Internal Medicine
DX: K57.32 Diverticulitis of large intestine without perforation or abscess without bleeding (principal); I48.0 Paroxysmal atrial fibrillation; J44.9 Chronic obstructive pulmonary disease, unspecified; E86.0 Dehydration; Z22.1 Carrier of other intestinal infectious diseases; Z79.899 Other long term (current) drug therapy
CPT/HCPCS: 36415; 71045; 74177; 80048; 80076; 81001; 83605; 83690; 83735; 83880; 84443; 84478; 84484; 85025; 85027; 87040; 87147; 87205; 87324; 87493; 87507; 87635; 92950; 93005; 93306; 94640; 99285; J1650; J1885; J2405; J2543; Q9967